=== PATIENT | male | born 1965 | race Caucasian/White ===

== ENCOUNTER 2017-01-24 08:00 | Outpatient (RCR) | payer BC ==
[~2017-01-24 08:00] MED LIST: NAPR-243 PO; QUIN324C PO
== END 2017-01-25 | disposition home or self-care (01) ==
PROVIDERS: ATTEND Orthopaedic Surgery
DX: Z47.1 Aftercare following joint replacement surgery (principal); Z96.652 Presence of left artificial knee joint

== ENCOUNTER 2017-03-07 07:59 | Outpatient (RCR) | payer BC | END 2017-04-27 | disposition home or self-care (01) | PROVIDERS: ATTEND Orthopaedic Surgery | DX: Z47.1 Aftercare following joint replacement surgery (principal); Z96.652 Presence of left artificial knee joint ==

== ENCOUNTER 2019-06-08 12:42 | Emergency (ER) | payer BC ==
[~2019-06-08] VITALS: Ht 172.2 cm; Wt 143.1 kg
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
[2019-06-08] MEDS ORDERED: fentaNYL INJECTION 100 MCG/2 ML AMP IVP ONE (13:00)
[2019-06-08 13:15] LABS: BASOPHILS % (AUTO) 0 % (0-10); EOSINOPHILS # (AUTO) 0.2 10^3/uL (0.0-0.3); EOSINOPHILS % (AUTO) 2 % (0-10); HEMATOCRIT 39 % (40-54); HEMOGLOBIN 12.7 G/DL (13.3-17.7); LYMPHOCYTES # (AUTO) 1.8 X 10^3 (1.0-4.0); LYMPHOCYTES % (AUTO) 16 % (12-44); MEAN CORPUSCULAR HEMOGLOBIN 30 PG (25-34); MEAN CORPUSCULAR HGB CONC 33 G/DL (32-36); MEAN CORPUSCULAR VOLUME 92 FL (80-99); MEAN PLATELET VOLUME 10.2 FL (7.4-10.4); MONOCYTES # (AUTO) 0.8 X 10^3 (0.0-1.0); MONOCYTES % (AUTO) 7 % (0-12); NEUTROPHILS # (AUTO) 8.3 X 10^3 (1.8-7.8); NEUTROPHILS % (AUTO) 75 % (42-75); PLATELET COUNT 272 10^3/uL (130-400); RED CELL DISTRIBUTION WIDTH 13.6 % (10.0-14.5); WHITE BLOOD COUNT 11.1 10^3/uL (4.3-11.0)
[2019-06-08 13:30] LABS: BUN/CREATININE RATIO 13; CALCIUM 9.2 MG/DL (8.5-10.1); CARBON DIOXIDE 26 MMOL/L (21-32); CHLORIDE 104 MMOL/L (98-107); GFR ESTIMATED > 60; GLUCOSE 199 MG/DL (70-105); POTASSIUM 4.4 MMOL/L (3.6-5.0); SODIUM 137 MMOL/L (135-145)
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
[2019-06-08] MEDS ORDERED: HYDROmorphone 2 MG/ML VIAL (DILAUDID) IV ONE (13:45)
[2019-06-08] MEDS ORDERED: KETAMINE/NaCl 50 MG/5 ML SYRINGE (ED ONLY) ONE (14:00)
[2019-06-08] MEDS ORDERED: KETOROLAC 30 MG/ML VIAL ONE (14:05)
[2019-06-08] MEDS ORDERED: KETAMINE/NaCl 50 MG/5 ML SYRINGE (ED ONLY) IV ONE (14:15)
--- NOTE | 2019-06-08 14:17 | NUR ---
Per Malcolm, administer 5mg ketamine for pain control at this time.
[2019-06-08] MEDS ORDERED: OXYC1TAB12 PO (14:34)
[2019-06-08 14:40] VITALS: BP 161/91
== END 2019-06-08 14:40 | disposition home or self-care (01) ==
LOC: EDUNIT# 12:42 → ER 12:42
DX: S82.234A Nondisplaced oblique fracture of shaft of right tibia, initial encounter for closed fracture (principal); R40.2142 Coma scale, eyes open, spontaneous, at arrival to emergency department; R40.2252 Coma scale, best verbal response, oriented, at arrival to emergency department; R40.2362 Coma scale, best motor response, obeys commands, at arrival to emergency department; W23.1XXA Caught, crushed, jammed, or pinched between stationary objects, initial encounter; Y92.219 Unspecified school as the place of occurrence of the external cause
CPT/HCPCS: 29505; 36415; 73590; 80048; 85025; 96374; 96375

== ENCOUNTER 2019-12-28 16:46 | Inpatient (IN) | payer BC ==
[~2019-12-28] VITALS: Ht 172.7 cm; Wt 137.4 kg
[2019-12-28] VITALS (7 sets, daily range): BP systolic 122–154; BP diastolic 69–92
[~2019-12-28 16:46] MED LIST changes: +OXYC1TAB12 PO
[2019-12-28] MEDS ORDERED: NS IV 1000 ML 1,000 ML IV SCH (17:13)
[2019-12-28] MEDS ORDERED: ACETAMINOPHEN 500 MG TAB (TYLENOL) PO ONE (17:15)
[2019-12-28 17:28] LABS: BASOPHILS % (AUTO) 0 % (0-10); EOSINOPHILS % (AUTO) 0 % (0-10); HEMATOCRIT 43 % (40-54); HEMOGLOBIN 14.3 G/DL (13.3-17.7); LYMPHOCYTES # (AUTO) 0.6 X 10^3 (1.0-4.0); LYMPHOCYTES % (AUTO) 9 % (12-44); MEAN CORPUSCULAR HEMOGLOBIN 30 PG (25-34); MEAN CORPUSCULAR HGB CONC 33 G/DL (32-36); MEAN CORPUSCULAR VOLUME 90 FL (80-99); MEAN PLATELET VOLUME 9.6 FL (7.4-10.4); MONOCYTES # (AUTO) 0.3 X 10^3 (0.0-1.0); MONOCYTES % (AUTO) 5 % (0-12); NEUTROPHILS % (AUTO) 87 % (42-75); PLATELET COUNT 247 10^3/uL (130-400)
[2019-12-28 17:39] LABS: ALBUMIN 3.8 GM/DL (3.2-4.5); CHLORIDE 97 MMOL/L (98-107); INR 0.9 (0.8-1.4); POTASSIUM 4.2 MMOL/L (3.6-5.0); PROTHROMBIN TIME PATIENT 12.4 SEC (12.2-14.7); SODIUM 134 MMOL/L (135-145)
[2019-12-28 17:41] LABS: GLUCOSE 125 MG/DL (70-105)
[2019-12-28 17:42] LABS: FIBRIN DEGRADATION PRODUCTS 2.24 UG/ML (0.00-0.49); TOTAL PROTEIN 7.3 GM/DL (6.4-8.2)
[2019-12-28 17:43] LABS: BILIRUBIN,TOTAL 0.4 MG/DL (0.1-1.0); CARBON DIOXIDE 25 MMOL/L (21-32)
[2019-12-28 17:45] LABS: ALKALINE PHOSPHATASE 51 U/L (40-136); CREATININE SERUM 1.11 MG/DL (0.60-1.30); GFR ESTIMATED > 60
[2019-12-28] MEDS ORDERED: fentaNYL INJECTION 100 MCG/2 ML AMP IVP ONE (17:45)
[2019-12-28 17:46] LABS: BUN/CREATININE RATIO 8
[2019-12-28 17:48] LABS: ALANINE AMINOTRANSFERASE 24 U/L (0-55)
--- NOTE | 2019-12-28 18:02 | Diagnostic Imaging Report ---
INDICATION: Chest pain. FINDINGS: Heart size is mildly enlarged. There is some prominence of the vascularity. There is also a right perihilar infiltrate which may be asymmetric edema versus pneumonia. No effusion and no pneumothorax. IMPRESSION: 1. Mild cardiomegaly and vascular congestion. Right perihilar pulmonary opacity, edema versus pneumonia. 2. No pleural fluid or pneumothorax. Dictated by: Dictated on workstation # [id number]
--- NOTE | 2019-12-28 18:42 | ED Respiratory ---
General Chief Complaint: Respiratory Problems Stated Complaint: RESPIRATORY FAILURE;COVID 19 Nursing Triage Note: pt amb to rm 10 with complaint of soa, cp that started friday. states tested positive for covid on friday. pt was swabbed yesterday, results not back. pt was 81% on ra upon arrival. Source: patient Exam Limitations: no limitations History of Present Illness Date Seen by Provider: Dec 28, 2019 Time Seen by Provider: 17:00 Initial Comments this 54-year-old gentleman presents to the emergency room very short of breath and hypoxic with an oxygen saturation of 81 percent on room air. He is also febrile. His tested positive for COVID-19 on Friday, December 23. He became ill that same day. He was tested yesterday and does not have his results back. He contacted his primary care provider with worsening symptoms today and was referred to the emergency room. He denies any history of respiratory problems. He has chest pain as well especially when coughing. Allergies and Home Medications Allergies Coded Allergies: No Known Drug Allergies (Unverified , 06/08/19) Home Medications Naproxen 500 Mg Tablet, 500 MG PO BID PRN, (Reported) NEEDED FOR ARTHRITIS PAIN Oxycodone HCl/Acetaminophen 1 Each Tablet, 0.5-2 TAB PO Q6H PRN for PAIN- MODERATE Prescribed by: DAYANA GALINDO on 06/08/19 1434 Quinine Sulfate 324 Mg Capsule, 324 MG PO HS, (Reported) Patient Home Medication List Home Medication List Reviewed: Yes Review of Systems Review of Systems Constitutional: see HPI EENTM: no symptoms reported Respiratory: see HPI Cardiovascular: see HPI Gastrointestinal: no symptoms reported Genitourinary: no symptoms reported Musculoskeletal: see HPI Skin: no symptoms reported Psychiatric/Neurological: No Symptoms Reported Hematologic/Lymphatic: No Symptoms Reported Immunological/Allergic: no symptoms reported Past Fmtcqfr-Ozlaio-Vkarpu Hx Past Med/Social Hx: Reviewed Nursing Past Med/Soc Hx Patient Social History Type Used: Smokeless Tobacco 2nd Hand Smoke Exposure: No Recent Foreign Travel: No Contact w/Someone Who Travel: No Recent Infectious Disease Expo: Yes Recent Hopitalizations: No Past Medical History Surgeries: Yes Gallbladder, Orthopedic Respiratory: No Cardiac: Yes Hypertension Neurological: No Reproductive Disorders: No Genitourinary: No Gastrointestinal: No Musculoskeletal: No Endocrine: Yes Diabetes, Non-Insulin dep HEENT: Yes (cochlear implant) Loss of Vision: Denies Cancer: No Psychosocial: No Integumentary: No Physical Exam Vital Signs - First Documented 12/28/19 12/28/19 17:02 17:36 Temp 39.7 Pulse 107 Resp 32 B/P (MAP) 103/49 (67) Pulse Ox 81 O2 Delivery Room Air O2 Flow Rate 6.00 Capillary Refill : Less Than 3 Seconds Height: '" Weight: 310lbs. 0.0oz. 140.712418ab; 48.00 BMI Method: General Appearance: WD/WN, moderate distress, obese HEENT: PERRL/EOMI, normal ENT inspection Neck: normal inspection Respiratory: lungs clear, respiratory distress, other (shallow rapid breathing with no wheezes or crackles) Cardiovascular: no edema, no murmur, tachycardia Gastrointestinal: normal bowel sounds, non tender, soft Extremities: normal inspection, no pedal edema Neurologic/Psychiatric: junior legal secretary II-XII nml as tested, no motor/sensory deficits, alert, normal mood/affect, oriented x 3 Skin: normal color, warm/dry Focused Exam Lactate Level 12/28/19 17:17: Lactic Acid Level 2.09*H Lactic Acid Level Laboratory Tests Test 12/28/19 17:17 Lactic Acid Level 2.09 MMOL/L (0.50-2.00) *H Progress/Results/Core Measures Suspected Sepsis Recent Fever Within 48 Hours: Yes Infection Criteria Present: None New/Unexplained Altered Menta: No Sepsis Screen: No Definite Risk SIRS Temperature: Pulse: 107 Respiratory Rate: 32 Laboratory Tests 12/28/19 17:17: White Blood Count 7.0 Blood Pressure 103 /49 Mean: 67 12/28/19 17:17: Lactic Acid Level 2.09*H Laboratory Tests 12/28/19 17:17: Creatinine 1.11, INR Comment 0.9, Platelet Count 247, Total Bilirubin 0.4 Results/Orders Lab Results Laboratory Tests Test 12/28/19 17:17 Range/Units White Blood Count 7.0 4.3-11.0 10^3/uL Red Blood Count 4.79 4.35-5.85 10^6/uL Hemoglobin 14.3 13.3-17.7 G/DL Hematocrit 43 40-54 % Mean Corpuscular Volume 90 80-99 FL Mean Corpuscular Hemoglobin 30 25-34 PG Mean Corpuscular Hemoglobin Concent 33 32-36 G/DL Red Cell Distribution Width 14.3 10.0-14.5 % Platelet Count 247 130-400 10^3/uL Mean Platelet Volume 9.6 7.4-10.4 FL Neutrophils (%) (Auto) 87 H 42-75 % Lymphocytes (%) (Auto) 9 L 12-44 % Monocytes (%) (Auto) 5 0-12 % Eosinophils (%) (Auto) 0 0-10 % Basophils (%) (Auto) 0 0-10 % Neutrophils # (Auto) 6.0 1.8-7.8 X 10^3 Lymphocytes # (Auto) 0.6 L 1.0-4.0 X 10^3 Monocytes # (Auto) 0.3 0.0-1.0 X 10^3 Eosinophils # (Auto) 0.0 0.0-0.3 10^3/uL Basophils # (Auto) 0.0 0.0-0.1 10^3/uL Prothrombin Time 12.4 12.2-14.7 SEC INR Comment 0.9 0.8-1.4 Activated Partial Thromboplast Time 33 24-35 SEC D-Dimer 2.24 H 0.00-0.49 UG/ML Sodium Level 134 L 135-145 MMOL/L Potassium Level 4.2 3.6-5.0 MMOL/L Chloride Level 97 L 98-107 MMOL/L Carbon Dioxide Level 25 21-32 MMOL/L Anion Gap 12 5-14 MMOL/L Blood Urea Nitrogen 9 7-18 MG/DL Creatinine 1.11 0.60-1.30 MG/DL Estimat Glomerular Filtration Rate > 60 BUN/Creatinine Ratio 8 Glucose Level 125 H 70-105 MG/DL Lactic Acid Level 2.09 *H 0.50-2.00 MMOL/L Calcium Level 9.0 8.5-10.1 MG/DL Corrected Calcium 9.2 8.5-10.1 MG/DL Total Bilirubin 0.4 0.1-1.0 MG/DL Aspartate Amino Transf (AST/SGOT) 35 H 5-34 U/L Alanine Aminotransferase (ALT/SGPT) 24 0-55 U/L Alkaline Phosphatase 51 40-136 U/L Lactate Dehydrogenase 458 H 125-220 U/L Troponin I < 0.028 <0.028 NG/ML C-Reactive Protein High Sensitivity 15.29 H 0.00-0.50 MG/DL Total Protein 7.3 6.4-8.2 GM/DL Albumin 3.8 3.2-4.5 GM/DL Procalcitonin 0.11 H <0.10 NG/ML Coronavirus 2019 (MARIA DOLORES) Positive H Negative My Orders Orders - ALPA SIEGEL MD Ed Iv/Invasive Line Start (12/28/19 17:13) Ns Iv 1000 Ml (Sodium Chloride 0.9%) (12/28/19 17:13) Acetaminophen Tablet (Tylenol Tablet) (12/28/19 17:15) Cbc With Automated Diff (12/28/19 17:13) Comprehensive Metabolic Panel (12/28/19 17:13) Hs C Reactive Protein (12/28/19 17:13) Fibrin Degradation Products (12/28/19 17:13) Blood Culture (12/28/19 17:13) Sputum Culture (12/28/19 17:13) Urinalysis (12/28/19 17:13) Urine Culture (12/28/19 17:13) Protime With Inr (12/28/19 17:13) Partial Thromboplastin Time (12/28/19 17:13) Chest 1 View, Ap/Pa Only (12/28/19 17:13) Ed Iv/Invasive Line Start (12/28/19 17:13) Vital Signs Adult Sepsis Patie Q15M (12/28/19 17:13) O2 (12/28/19 17:13) Remove Rings In Anticipation O (12/28/19 17:13) Lactic Acid Analyzer (12/28/19 17:13) Procalcitonin (Pct) (12/28/19 17:13) LDH (12/28/19 17:13) Covid 19 Inhouse Test (12/28/19 17:13) Dexamethasone Injection (Decadron Inje (12/28/19 17:45) Fentanyl Injection (Sublimaze Injection (12/28/19 17:45) Troponin I (12/28/19 17:35) Ekg Tracing (12/28/19 17:35) Medications Given in ED Current Medications Medications Dose Ordered Sig/Yasmeen Route Start Time Stop Time Status Last Admin Dose Admin Acetaminophen 1,000 mg ONCE ONCE PO 12/28/19 17:15 12/28/19 17:17 DC 12/28/19 17:28 1,000 MG Dexamethasone Sodium Phosphate 20 mg ONCE ONCE IV 12/28/19 17:45 12/28/19 17:46 DC 12/28/19 17:47 20 MG Fentanyl Citrate 50 mcg ONCE ONCE IVP 12/28/19 17:45 12/28/19 17:46 DC 12/28/19 17:48 50 MCG Vital Signs/I&O 12/28/19 12/28/19 17:02 17:36 Temp 39.7 Pulse 107 Resp 32 B/P (MAP) 103/49 (67) Pulse Ox 81 91 O2 Delivery Room Air Nasal Cannula O2 Flow Rate 6.00 Capillary Refill : Less Than 3 Seconds Blood Pressure Mean: 67 Progress Note : Progress Note rapid COVID screen was positive. Blood pressure was marginal and a liter of IV fluid was administered. Patient remained stable on 3-6 L of nasal cannula. Case was discussed with Dr. Funez and Dr. Echevarria. Swathi requested initiation of Remdesivir and Dexamethasone as well as a one-time dose of therapeutic Lovenox. Fentanyl was given for pain. Tylenol was given for fever. Troponin and EKG were obtained to rule out ACS. ECG Initial ECG Impression Date: Dec 28, 2019 Initial ECG Impression Time: 17:38 Initial ECG Rate: 105 Initial ECG Rhythm: S.Tach Comment Sinus tachycardia with borderline left axis deviation. No ST elevation or depression. No abnormal intervals. Diagnostic Imaging Diagonstic Imaging: Xray Plain Films/CT/US/NM/MRI: chest Comments Chest x-ray viewed by me and report reviewed. See report below: NAME: MARIA ISABEL [facility] REC#: [id number] PT STATUS: ADM IN : 1965 PHYSICIAN: ALPA SIEGEL MD ADMIT DATE: 12/28/19/ICU Signed Date of Exam:12/28/19 CHEST 1 VIEW, AP/PA ONLY INDICATION: Chest pain. FINDINGS: Heart size is mildly enlarged. There is some prominence of the vascularity. There is also a right perihilar infiltrate which may be asymmetric edema versus pneumonia. No effusion and no pneumothorax. IMPRESSION: 1. Mild cardiomegaly and vascular congestion. Right perihilar pulmonary opacity, edema versus pneumonia. 2. No pleural fluid or pneumothorax. Dictated by: Dictated on workstation # [id number] Dict: 12/28/19 1758 Trans: 12/28/191802 [id number] Interpreted by: KELLIE PERALTA Electronically signed by: KELLIE PERALTA 12/28/19 1803 Departure Communication (Admissions) Time/Spoke to Admitting Phy: 17:30 Dr. Funez Time/Spoke to Consulting Phy: 17:42 Dr. Echevarria Impression Primary Impression: COVID-19 Additional Impressions: Respiratory failure Qualified Codes: J96.01 - Acute respiratory failure with hypoxia Chest pain Qualified Codes: R07.9 - Chest pain, unspecified Disposition: ADMITTED INPATIENT Condition: Improved Admissions Decision to Admit Reason: Admit from ER (General) Decision to Admit/Date: Dec 28, 2019 Time/Decision to Admit Time: 17:00 Departure-Patient Inst. Referrals: NO,LOCAL PHYSICIAN (PCP) Primary Care Physician EV STAFFORD (Family) Primary Care Physician ALPA SIEGEL MD Dec 28, 2019 18:42
[2019-12-28] MEDS ORDERED: ENOXAPARIN 80 MG/0.8 ML (LOVENOX) SYR SC ONE ×2 (18:45)
[2019-12-28] MEDS ORDERED: ONDANSETRON 4 MG/2 ML (SDV) Z0FRAN IVP PRN (19:15)
[2019-12-28] MEDS ORDERED: fentaNYL INJECTION 100 MCG/2 ML AMP IVP PRN (20:00)
[2019-12-28] MEDS ORDERED: REMDESIVIR 200 MG/NS 250 ML IVPB IV ONE ×2 (20:00)
[2019-12-28] MEDS ORDERED: ACETAMINOPHEN 325 MG TABLET PO PRN (20:15)
[2019-12-28] MEDS: LACTATED RINGERS 1,000 ML IV SCH (21:04)
[2019-12-28] MEDS: CEFEPIME 1,000 MG/SWFI 10 ML IV PUSH IV SCH ×2 (21:04)
[2019-12-29] VITALS (21 sets, daily range): BP systolic 108–153; BP diastolic 66–98
[2019-12-29] MEDS ORDERED: methylPREDNISolone 40 MG/ML (Solu-MEDROL) VIAL IV SCH
[2019-12-29] MEDS: CEFEPIME 1,000 MG/SWFI 10 ML IV PUSH IV SCH ×8 (02:27→20:40)
[2019-12-29] MEDS: LACTATED RINGERS 1,000 ML IV SCH ×4 (04:00→20:41)
[2019-12-29 04:56] LABS: BASOPHILS % (AUTO) 0 % (0-10); EOSINOPHILS % (AUTO) 0 % (0-10); HEMATOCRIT 42 % (40-54); HEMOGLOBIN 13.8 G/DL (13.3-17.7); LYMPHOCYTES # (AUTO) 0.3 X 10^3 (1.0-4.0); LYMPHOCYTES % (AUTO) 7 % (12-44); MEAN CORPUSCULAR HEMOGLOBIN 30 PG (25-34); MEAN CORPUSCULAR HGB CONC 33 G/DL (32-36); MEAN CORPUSCULAR VOLUME 90 FL (80-99); MEAN PLATELET VOLUME 9.9 FL (7.4-10.4); MONOCYTES # (AUTO) 0.1 X 10^3 (0.0-1.0); MONOCYTES % (AUTO) 2 % (0-12); NEUTROPHILS % (AUTO) 90 % (42-75); PLATELET COUNT 233 10^3/uL (130-400); WHITE BLOOD COUNT 4.4 10^3/uL (4.3-11.0)
[2019-12-29 05:10] LABS: CHLORIDE 99 MMOL/L (98-107); POTASSIUM 4.7 MMOL/L (3.6-5.0); SODIUM 136 MMOL/L (135-145)
[2019-12-29 05:11] LABS: CALCIUM 8.8 MG/DL (8.5-10.1)
[2019-12-29 05:12] LABS: GLUCOSE 255 MG/DL (70-105)
[2019-12-29 05:13] LABS: CARBON DIOXIDE 24 MMOL/L (21-32)
--- NOTE | 2019-12-29 05:15 | Pulmonary Consultation ---
History of Present Illness History of Present Illness Date Seen by Provider: Dec 29, 2019 Time Seen by Provider: 05:09 Date of Admission History of Present Illness 54yo presented to ED secondary to fever, worsening SOB, cough, and CP. He was found to be hypoxia with Sp02 was 81% on RA. His tested positive for COVID- 19 on Friday, December 23. Pt was admitted to ICU, Allergies and Home Medications Allergies Coded Allergies: No Known Drug Allergies (Unverified , 06/08/19) Home Medications Naproxen 500 Mg Tablet, 500 MG PO BID PRN, (Reported) NEEDED FOR ARTHRITIS PAIN Oxycodone HCl/Acetaminophen 1 Each Tablet, 0.5-2 TAB PO Q6H PRN for PAIN- MODERATE Prescribed by: DAYANA GALINDO on 06/08/19 1434 Quinine Sulfate 324 Mg Capsule, 324 MG PO HS, (Reported) Past Bsbltrw-Basuqy-Epohdu Hx Past Med/Social Hx: Reviewed Nursing Past Med/Soc Hx Patient Social History Alcohol Use: Denies Use Recreational Drug Use: No Type Used: Smokeless Tobacco 2nd Hand Smoke Exposure: No Recent Foreign Travel: No Contact w/Someone Who Travel: No Recent Infectious Disease Expo: Yes Recent Hopitalizations: No Immunizations Up To Date Tetanus Booster (TDap): Unknown PED Vaccines UTD: Yes Past Medical History Surgeries: Yes Gallbladder, Orthopedic Respiratory: No Cardiac: Yes Hypertension Neurological: No Reproductive Disorders: No Genitourinary: No Gastrointestinal: No Musculoskeletal: No Endocrine: Yes Diabetes, Non-Insulin dep HEENT: Yes (cochlear implant) Loss of Vision: Denies Cancer: No Psychosocial: No Integumentary: No Review of Systems Time Seen by Provider: 05:13 Constitutional: Fever, Chills, Sweats, Weakness, Malaise, Other Eyes: No: Pain, Vision change, Conjunctivae inflammation, Eyelid inflammation, Other, Redness ENT: Nose congestion; No: Ear pain, Ear discharge, Nose pain, Nose discharge, Mouth pain, Mouth swelling, Throat pain, Throat swelling, Other Respiratory: Cough, Dry, Shortness of breath, SOB with excertion Cardiovascular: Chest Pain, Palpitations, Paroxysmal Noc. Dyspnea Sepsis Event Evaluation Height, Weight, BMI Height: '" Weight: 310lbs. 0.0oz. 140.928819pe; 48.00 BMI Method: Exam Exam Vital Signs Date Time Temp Pulse Resp B/P (MAP) Pulse Ox O2 Delivery O2 Flow Rate FiO2 12/29/19 04:00 62 21 138/82 (100) 95 Nasal Cannula 4.00 12/29/19 03:00 69 17 133/89 (104) 89 Nasal Cannula 4.00 12/29/19 02:30 63 17 150/90 (110) 91 Nasal Cannula 4.00 12/29/19 02:00 71 29 142/98 (113) 87 Nasal Cannula 3.00 12/29/19 01:00 64 12/29/19 01:00 64 21 125/81 (96) 92 Nasal Cannula 3.00 12/29/19 00:00 67 26 132/87 (102) 89 Nasal Cannula 3.00 12/29/19 00:00 Nasal Cannula 4.00 12/28/19 23:00 70 12 141/87 (105) 92 Nasal Cannula 3.00 12/28/19 22:00 105 30 132/72 (92) 93 Nasal Cannula 3.00 12/28/19 21:00 76 32 132/86 (101) 96 Nasal Cannula 3.00 12/28/19 20:00 Nasal Cannula 4.00 12/28/19 20:00 80 19 122/72 (89) 96 Nasal Cannula 3.00 12/28/19 19:30 84 20 143/92 (109) 96 Nasal Cannula 3.00 12/28/19 19:15 89 20 154/89 (110) 97 Nasal Cannula 3.00 12/28/19 19:00 92 20 125/69 (87) 95 Nasal Cannula 3.00 12/28/19 18:54 93 12/28/19 18:49 93 13 123/73 97 Nasal Cannula 3.00 12/28/19 17:36 91 Nasal Cannula 6.00 12/28/19 17:02 39.7 107 32 103/49 (67) 81 Room Air I & O 12/29/19 07:00 Intake Total 1650 ml Output Total 840 ml Balance 810 ml Height & Weight Height: '" Weight: 310lbs. 0.0oz. 140.532405bc; 48.00 BMI Method: General Appearance: Anxious, Mild Distress HEENT: PERRL/EOMI Neck: Full Range of Motion, Non Tender, Supple Respiratory: Chest Non Tender, No Accessory Muscle Use, No Respiratory Distress, Decreased Breath Sounds Cardiovascular: Regular Rate, Rhythm Capillary Refill: Less Than 3 Seconds Gastrointestinal: normal bowel sounds, non tender, soft Extremity: Normal Capillary Refill, Normal Inspection, No Pedal Edema Neurologic/Psychiatric: Alert, Oriented x3 Skin: Normal Color, Warm/Dry Lymphatic: No Adenopathy Results Lab Laboratory Tests 12/28/19 17:17 12/29/19 04:35 Assessment/Plan Assessment/Plan Acute respiratory failure with hypoxia COVID-19 pneumonia -Remdesivier - pt is aware this is an EUA medicine and consents to use. -Oxygen -Convalescent plasma --pt is aware this is an EUA medicine and consents to use. -Decadron 6mg PO daily -Encourage proning CP secondary to pneumonia -troponin is negative BLAS JONES DO Dec 29, 2019 05:15
[2019-12-29 05:16] LABS: CREATININE SERUM 0.93 MG/DL (0.60-1.30); GFR ESTIMATED > 60; PHOSPHORUS 2.7 MG/DL (2.3-4.7)
[2019-12-29 05:17] LABS: BUN/CREATININE RATIO 12
[2019-12-29 05:18] LABS: MAGNESIUM 2.3 MG/DL (1.6-2.4)
[2019-12-29 05:45] LABS: ATYPICAL LYMPHOCYTES 2 %; BAND NEUTROPHILS 3 %; LYMPHOCYTES % (MANUAL) 5 %; MICROCYTOSIS SLIGHT; MONOCYTES % (MANUAL) 1 %; NEUTROPHILS % (MANUAL) 89 %
[2019-12-29] MEDS ORDERED: inSUlin ASPART (NovoLOG) 1 UNIT/0.01 ML (CHARGE PER UNIT) SC SCH (09:15)
[2019-12-29] MEDS: ENOXAPARIN 40 MG/0.4 ML (LOVENOX) SYR SC SCH ×2 (09:42→20:41)
[2019-12-29] MEDS ORDERED: ATOR10TA66 PO (12:05)
[2019-12-29] MEDS ORDERED: METF-397 PO (12:05)
[2019-12-29] MEDS ORDERED: CETI10TA21 PO (12:05)
[2019-12-29] MEDS ORDERED: OMEP20CA18 PO (12:05)
[2019-12-29] MEDS ORDERED: ENAL10TA PO (12:05)
--- NOTE | 2019-12-29 12:06 | NUR ---
SPOKE WITH THE PT (I CALLED HIS ROOM PHONE) AND WENT THRU THE EXT MED HISTORY TO COMPLETE THE MED REC ENALAPRIL 10MG- DIRECTIONS ON THE EXT MED HISTORY IS 1 & TABS DAILY HOWEVER THE PT IS ONLY TAKING 1 TAB DAILY ALL OTHER MEDICATIONS THE PT TAKES MATCH THE EXT MED HISTORY OTC MEDS: ZYRTEC
[2019-12-29] MEDS: inSUlin ASPART (NovoLOG) 1 UNIT/0.01 ML (CHARGE PER UNIT) SC SCH ×3 (12:53→20:46)
[2019-12-29] MEDS ORDERED: NS (IVPB) 250 ML ONE (13:31)
--- NOTE | 2019-12-29 17:16 | NUR ---
RECEIVED REPORT FROM MENDOZA DOMINGUEZ. THIS RN TO ASSUME CARE OF THE PT.
[2019-12-29] MEDS ORDERED: inSUlin ASPART/PROTA (NovoLOG 70/30) CHARGE PER UNIT SC SCH (21:00)
[2019-12-29] MEDS: MELATONIN 3 MG TABLET PO SCH (21:30)
[2019-12-29] MEDS: REMDESIVIR 100 MG/NS 250 ML IVPB IV SCH ×2 (23:10)
[2019-12-30] MEDS: LACTATED RINGERS 1,000 ML IV SCH (00:49)
[2019-12-30] MEDS: CEFEPIME 1,000 MG/SWFI 10 ML IV PUSH IV SCH ×2 (00:55)
[2019-12-30 03:20] LABS: BASOPHILS % (AUTO) 0 % (0-10); EOSINOPHILS % (AUTO) 0 % (0-10); HEMATOCRIT 37 % (40-54); HEMOGLOBIN 12.5 G/DL (13.3-17.7); LYMPHOCYTES # (AUTO) 0.6 X 10^3 (1.0-4.0); LYMPHOCYTES % (AUTO) 5 % (12-44); MEAN CORPUSCULAR HEMOGLOBIN 30 PG (25-34); MEAN CORPUSCULAR HGB CONC 33 G/DL (32-36); MEAN CORPUSCULAR VOLUME 90 FL (80-99); MEAN PLATELET VOLUME 10.2 FL (7.4-10.4); MONOCYTES # (AUTO) 0.6 X 10^3 (0.0-1.0); MONOCYTES % (AUTO) 4 % (0-12); NEUTROPHILS # (AUTO) 11.6 X 10^3 (1.8-7.8); NEUTROPHILS % (AUTO) 91 % (42-75); PLATELET COUNT 254 10^3/uL (130-400); WHITE BLOOD COUNT 12.8 10^3/uL (4.3-11.0)
[2019-12-30 03:35] LABS: BUN/CREATININE RATIO 16; CALCIUM 8.8 MG/DL (8.5-10.1); CARBON DIOXIDE 27 MMOL/L (21-32); CHLORIDE 101 MMOL/L (98-107); CREATININE SERUM 0.79 MG/DL (0.60-1.30); GFR ESTIMATED > 60; GLUCOSE 221 MG/DL (70-105); POTASSIUM 4.7 MMOL/L (3.6-5.0); SODIUM 137 MMOL/L (135-145)
--- NOTE | 2019-12-30 04:35 | Pulmonary Progress Note ---
Subjective Time Seen by a Provider: 04:33 Subjective/Events-last exam Pt appears to be doing better however still requiring oxygen. Sepsis Event Evaluation Height, Weight, BMI Height: '" Weight: 310lbs. 0.0oz. 140.035537pr; 48.00 BMI Method: Focused Exam Lactate Level 12/28/19 17:17: Lactic Acid Level 2.09*H 12/28/19 20:10: Lactic Acid Level 1.31 Exam Exam Vital Signs Date Time Temp Pulse Resp B/P (MAP) Pulse Ox O2 Delivery O2 Flow Rate FiO2 12/30/19 01:00 70 12/30/19 00:00 94 High Flow N/C 5.00 12/29/19 23:16 35.9 68 22 108/66 (80) 95 High Flow N/C 5.00 12/29/19 20:47 36.6 76 25 132/82 (99) High Flow N/C 6.00 12/29/19 20:00 70 28 132/82 (99) 96 Nasal Cannula 6.00 12/29/19 20:00 93 High Flow N/C 6.00 12/29/19 19:00 71 12/29/19 18:04 Nasal Cannula 6.00 12/29/19 16:00 75 12 130/84 (99) 100 Nasal Cannula 5.00 12/29/19 16:00 Nasal Cannula 5.00 12/29/19 14:25 36.9 78 18 138/91 99 Nasal Cannula 5.00 12/29/19 14:15 36.9 75 18 139/90 100 Nasal Cannula 5.00 12/29/19 14:07 36.9 80 18 138/92 97 Nasal Cannula 5.00 12/29/19 13:55 80 12/29/19 12:15 Nasal Cannula 5.00 12/29/19 12:00 87 34 120/76 (91) 95 Nasal Cannula 5.00 12/29/19 12:00 36.6 12/29/19 10:00 67 24 144/84 (104) 95 Nasal Cannula 5.00 12/29/19 09:00 71 22 153/95 (114) 94 Nasal Cannula 5.00 12/29/19 08:00 Nasal Cannula 5.00 12/29/19 08:00 65 25 134/96 (109) 94 Nasal Cannula 5.00 12/29/19 08:00 36.8 12/29/19 07:04 Nasal Cannula 2.00 12/29/19 07:00 63 23 127/76 (93) 95 Nasal Cannula 5.00 12/29/19 07:00 66 12/29/19 06:15 Nasal Cannula 5.00 12/29/19 06:15 69 8 136/88 (104) 91 Nasal Cannula 5.00 12/29/19 06:00 68 31 127/82 (97) 89 Nasal Cannula 4.00 12/29/19 05:00 66 21 133/87 (102) 90 Nasal Cannula 4.00 I & O 12/30/19 07:00 Intake Total 3600 ml Output Total 1550 ml Balance 2050 ml Height & Weight Height: '" Weight: 310lbs. 0.0oz. 140.070232wx; 48.00 BMI Method: General Appearance: Anxious, Mild Distress HEENT: PERRL/EOMI Neck: Full Range of Motion, Non Tender, Supple Respiratory: Chest Non Tender, No Accessory Muscle Use, No Respiratory Distress, Decreased Breath Sounds Cardiovascular: Regular Rate, Rhythm Capillary Refill: Less Than 3 Seconds Gastrointestinal: normal bowel sounds, non tender, soft Extremity: Normal Capillary Refill, Normal Inspection, No Pedal Edema Neurologic/Psychiatric: Alert, Oriented x3 Skin: Normal Color, Warm/Dry Lymphatic: No Adenopathy Results Lab Laboratory Tests 12/28/19 17:17 12/29/19 04:35 12/30/19 03:08 Assessment/Plan Assessment/Plan Acute respiratory failure with hypoxia COVID-19 pneumonia -Remdesivier - pt is aware this is an EUA medicine and consents to use. -Oxygen -Convalescent plasma --pt is aware this is an EUA medicine and consents to use. -Decadron 6mg PO daily -Encourage proning -D/C Abx - Doubt active bacterial infection. CP secondary to pneumonia -troponin is negative x2 BLAS JONES DO Dec 30, 2019 04:35
[2019-12-30 06:12] VITALS: BP 123/72
[2019-12-30] MEDS: inSUlin ASPART (NovoLOG) 1 UNIT/0.01 ML (CHARGE PER UNIT) SC SCH ×4 (06:16→20:08)
--- NOTE | 2019-12-30 08:20 | NUR ---
REPORT RECEIVED FROM [facility]
[2019-12-30] MEDS: dexAMETHasone 6 MG TAB (DECADRON) PO SCH (08:47)
[2019-12-30] MEDS: ENOXAPARIN 40 MG/0.4 ML (LOVENOX) SYR SC SCH ×2 (08:50→20:07)
[2019-12-30 11:50] VITALS: BP 101/60
[2019-12-30 15:30] VITALS: BP 121/72
[2019-12-30 19:54] VITALS: BP 101/65
[2019-12-30] MEDS: REMDESIVIR 100 MG/NS 250 ML IVPB IV SCH ×2 (20:06)
[2019-12-30] MEDS: MELATONIN 3 MG TABLET PO SCH (20:07)
[2019-12-31] VITALS (7 sets, daily range): BP systolic 100–115; BP diastolic 51–66
[2019-12-31] MEDS: inSUlin ASPART (NovoLOG) 1 UNIT/0.01 ML (CHARGE PER UNIT) SC SCH ×4 (06:10→20:28)
[2019-12-31 06:32] LABS: BASOPHILS % (AUTO) 0 % (0-10); EOSINOPHILS % (AUTO) 0 % (0-10); HEMATOCRIT 40 % (40-54); HEMOGLOBIN 13.1 G/DL (13.3-17.7); LYMPHOCYTES # (AUTO) 0.8 X 10^3 (1.0-4.0); LYMPHOCYTES % (AUTO) 7 % (12-44); MEAN CORPUSCULAR HEMOGLOBIN 29 PG (25-34); MEAN CORPUSCULAR HGB CONC 33 G/DL (32-36); MEAN CORPUSCULAR VOLUME 90 FL (80-99); MEAN PLATELET VOLUME 10.1 FL (7.4-10.4); MONOCYTES # (AUTO) 0.7 X 10^3 (0.0-1.0); MONOCYTES % (AUTO) 6 % (0-12); NEUTROPHILS # (AUTO) 9.6 X 10^3 (1.8-7.8); NEUTROPHILS % (AUTO) 87 % (42-75); PLATELET COUNT 305 10^3/uL (130-400); WHITE BLOOD COUNT 11.1 10^3/uL (4.3-11.0)
[2019-12-31 06:41] LABS: CHLORIDE 98 MMOL/L (98-107); POTASSIUM 4.4 MMOL/L (3.6-5.0); SODIUM 136 MMOL/L (135-145)
[2019-12-31 06:43] LABS: CALCIUM 8.8 MG/DL (8.5-10.1); GLUCOSE 200 MG/DL (70-105)
[2019-12-31 06:45] LABS: CARBON DIOXIDE 27 MMOL/L (21-32)
[2019-12-31 06:47] LABS: CREATININE SERUM 0.82 MG/DL (0.60-1.30); GFR ESTIMATED > 60
[2019-12-31 06:48] LABS: BUN/CREATININE RATIO 21
[2019-12-31] MEDS: ENOXAPARIN 40 MG/0.4 ML (LOVENOX) SYR SC SCH ×2 (08:12→20:27)
[2019-12-31] MEDS: dexAMETHasone 6 MG TAB (DECADRON) PO SCH (08:12)
[2019-12-31] MEDS ORDERED: ACETAMINOPHEN 325 MG TABLET PO PRN (08:45)
[2019-12-31] MEDS ORDERED: polyethylene glycoL POWDER 17 GM (MIRALAX) PACK PO PRN (08:45)
[2019-12-31] MEDS ORDERED: ONDANSETRON 4 MG (ZOFRAN) ORAL DISSOLVE TAB PO PRN (08:45)
[2019-12-31] MEDS ORDERED: ANTACID SUSP 30 ML UDC (MYLANTA) PO PRN (08:45)
[2019-12-31] MEDS ORDERED: diphenhydrAMINE 25 MG TAB (BENADRYL) PO PRN (08:45)
[2019-12-31] MEDS ORDERED: ONDANSETRON 4 MG/2 ML (SDV) Z0FRAN IV PRN (08:45)
[2019-12-31] MEDS ORDERED: BISACODYL 10 MG SUPP (DULCOLAX) PR PRN (08:45)
[2019-12-31] MEDS: PANTOPRAZOLE 20 MG TABLET (PROTONIX) PO SCH (09:28)
[2019-12-31] MEDS: LORATADINE (CLARITIN) 10 MG TAB PO SCH (09:28)
[2019-12-31] MEDS: metFORMIN 500 MG (GLUCOPHAGE) TAB PO SCH ×2 (09:29→20:30)
[2019-12-31] MEDS: SENNOSIDES 8.6 MG (SENOKOT) TAB PO SCH ×2 (09:39→20:28)
[2019-12-31] MEDS: ENALAPRIL 10 MG (VASOTEC) TAB PO SCH (09:39)
[2019-12-31] MEDS: DOCUSATE SODIUM 100 MG (COLACE) CAP PO SCH ×2 (09:40→20:28)
--- NOTE | 2019-12-31 15:53 | Progress Note - Hospitalist ---
Subjective HPI/CC On Admission Date Seen by Provider: Dec 31, 2019 Time Seen by Provider: 10:25 Subjective/Events-last exam He reports no complaints or concerns. He denies fevers and chills. He denies trouble breathing. He has a bit of a cough. He is in his bedside chair. He says he wants to take a nap. He feels like he is getting better. Focused Exam Lactate Level 12/28/19 17:17: Lactic Acid Level 2.09*H 12/28/19 20:10: Lactic Acid Level 1.31 Objective Exam Vital Signs Vital Signs Date Time Temp Pulse Resp B/P (MAP) Pulse Ox O2 Delivery O2 Flow Rate FiO2 12/31/19 12:33 54 12/31/19 12:00 36.4 20 100/51 (67) 96 Nasal Cannula 3.00 Capillary Refill : Less Than 3 SecondsLess Than 3 Seconds General Appearance: No Apparent Distress, WD/WN HEENT: PERRL/EOMI, Pharynx Normal Neck: Normal Inspection, Supple Respiratory: Lungs Clear, Normal Breath Sounds, No Respiratory Distress Cardiovascular: Regular Rate, Rhythm, No Edema, No Murmur Gastrointestinal: Normal Bowel Sounds, Non Tender, Soft Extremity: Normal Inspection, Non Tender, No Pedal Edema Neurologic/Psychiatric: Alert, Oriented x3, No Motor/Sensory Deficits, Normal Mood/Affect Skin: Normal Color, Warm/Dry Results/Procedures Lab Laboratory Tests 12/31/19 06:30 Patient resulted labs reviewed. Imaging: Reviewed Imaging Report Assessment/Plan Assessment and Plan Assess & Plan/Chief Complaint COVID-19 Acute respiratory failure with hypoxia -Continue Remdesivir -Continue Decadron -s/p convalescent plasma -Continue supplemental oxygen, wean as able T2DM Steroid induced hyperglycemia -Resume Metformin -Sliding scale insulin HTN HLD GERD -Continue home meds Morbid obesity -Clinically significant, no acute management needs DVT Prophylaxis: Lovenox Diagnosis/Problems Diagnosis/Problems (1) COVID-19 Status: Acute (2) Respiratory failure Status: Acute Qualifiers: Chronicity: acute Respiratory failure complication: hypoxia Qualified Codes: J96.01 - Acute respiratory failure with hypoxia (3) T2DM (type 2 diabetes mellitus) Status: Chronic (4) Steroid-induced hyperglycemia Status: Acute (5) HTN (hypertension) Status: Chronic (6) HLD (hyperlipidemia) Status: Chronic (7) GERD (gastroesophageal reflux disease) Status: Chronic (8) Morbid obesity Status: Chronic Clinical Quality Measures DVT/VTE Risk/Contraindication: Risk Factor Score Per Nursin RFS Level Per Nursing on Admit: 3=High YOSELYN MAYNARD MD Dec 31, 2019 15:53
[2019-12-31] MEDS: REMDESIVIR 100 MG/NS 250 ML IVPB IV SCH ×2 (20:23)
[2019-12-31] MEDS: MELATONIN 3 MG TABLET PO SCH (20:28)
[2020-01-01 04:00] VITALS: BP 116/68
[2020-01-01] MEDS: inSUlin ASPART (NovoLOG) 1 UNIT/0.01 ML (CHARGE PER UNIT) SC SCH ×4 (05:35→20:47)
[2020-01-01 07:10] LABS: BASOPHILS % (AUTO) 0 % (0-10); EOSINOPHILS % (AUTO) 0 % (0-10); HEMATOCRIT 38 % (40-54); HEMOGLOBIN 12.5 G/DL (13.3-17.7); LYMPHOCYTES % (AUTO) 10 % (12-44); MEAN CORPUSCULAR HEMOGLOBIN 30 PG (25-34); MEAN CORPUSCULAR HGB CONC 33 G/DL (32-36); MEAN CORPUSCULAR VOLUME 90 FL (80-99); MEAN PLATELET VOLUME 10.3 FL (7.4-10.4); MONOCYTES # (AUTO) 0.7 X 10^3 (0.0-1.0); MONOCYTES % (AUTO) 7 % (0-12); NEUTROPHILS # (AUTO) 8.2 X 10^3 (1.8-7.8); NEUTROPHILS % (AUTO) 83 % (42-75); PLATELET COUNT 286 10^3/uL (130-400); WHITE BLOOD COUNT 9.9 10^3/uL (4.3-11.0)
[2020-01-01 07:27] LABS: CHLORIDE 96 MMOL/L (98-107); SODIUM 135 MMOL/L (135-145)
[2020-01-01 07:28] LABS: CALCIUM 8.5 MG/DL (8.5-10.1)
[2020-01-01 07:29] LABS: GLUCOSE 156 MG/DL (70-105)
[2020-01-01 07:30] LABS: CARBON DIOXIDE 30 MMOL/L (21-32)
[2020-01-01 07:33] LABS: CREATININE SERUM 0.75 MG/DL (0.60-1.30); GFR ESTIMATED > 60
[2020-01-01 07:34] LABS: BUN/CREATININE RATIO 21
[2020-01-01 08:00] VITALS: BP 117/64
[2020-01-01] MEDS: dexAMETHasone 6 MG TAB (DECADRON) PO SCH (08:23)
[2020-01-01] MEDS: metFORMIN 500 MG (GLUCOPHAGE) TAB PO SCH ×2 (08:23→20:47)
[2020-01-01] MEDS: DOCUSATE SODIUM 100 MG (COLACE) CAP PO SCH ×2 (08:23→20:47)
[2020-01-01] MEDS: LORATADINE (CLARITIN) 10 MG TAB PO SCH (08:23)
[2020-01-01] MEDS: SENNOSIDES 8.6 MG (SENOKOT) TAB PO SCH ×2 (08:23→20:47)
[2020-01-01] MEDS: PANTOPRAZOLE 20 MG TABLET (PROTONIX) PO SCH (08:23)
[2020-01-01] MEDS: ENOXAPARIN 40 MG/0.4 ML (LOVENOX) SYR SC SCH ×2 (08:23→20:48)
[2020-01-01] MEDS: ENALAPRIL 10 MG (VASOTEC) TAB PO SCH (08:51)
[2020-01-01 12:00] VITALS: BP 110/60
--- NOTE | 2020-01-01 13:22 | Progress Note - Hospitalist ---
Subjective HPI/CC On Admission Date Seen by Provider: Jan 01, 2020 Time Seen by Provider: 13:17 Subjective/Events-last exam Pt reports feeling much better. Oxygen sats only around 90 with 4.5lpm per patient. I checked patient while I was in the room and it was 85%. I increased oxygen ultimately to 10lpm. I was able to start titrating down to 9lpm and he maintained around 93% when I left the room. RN was about to enter and updated to this and will continue to titrate back down. Objective Exam Vital Signs Vital Signs Date Time Temp Pulse Resp B/P (MAP) Pulse Ox O2 Delivery O2 Flow Rate FiO2 01/01/20 12:44 65 01/01/20 09:03 90 Nasal Cannula 4.50 01/01/20 08:00 35.7 18 117/64 (81) Capillary Refill : Less Than 3 SecondsLess Than 3 Seconds General Appearance: No Apparent Distress, WD/WN, Obese Respiratory: Lungs Clear, No Accessory Muscle Use, Other (on NC as per HPI) Cardiovascular: Regular Rate, Rhythm, No Murmur Gastrointestinal: Normal Bowel Sounds, Non Tender, Soft Neurologic/Psychiatric: Alert, Oriented x3 Results/Procedures Lab Laboratory Tests 01/01/20 07:00 Patient resulted labs reviewed. Imaging: Reviewed Imaging Report Assessment/Plan Assessment and Plan Assess & Plan/Chief Complaint COVID-19 Acute respiratory failure with hypoxia -Continue Remdesivir -Continue Decadron -s/p convalescent plasma -Continue supplemental oxygen, wean as able- increased need today -Encouraged proning T2DM Steroid induced hyperglycemia -Continue Metformin -Sliding scale insulin HTN HLD GERD -Continue home meds Morbid obesity -Clinically significant, no acute management needs DVT Prophylaxis: Lovenox Diagnosis/Problems Diagnosis/Problems (1) COVID-19 Status: Acute (2) Morbid obesity Status: Chronic (3) HLD (hyperlipidemia) Status: Chronic Qualifiers: Hyperlipidemia type: unspecified Qualified Codes: E78.5 - Hyperlipidemia, unspecified (4) HTN (hypertension) Status: Chronic Qualifiers: Hypertension type: essential hypertension Qualified Codes: I10 - Essential (primary) hypertension (5) T2DM (type 2 diabetes mellitus) Status: Chronic Qualifiers: Diabetes mellitus snf insulin use: unspecified snf insulin use status Diabetes mellitus complication status: with other specified complication Qualified Codes: E11.69 - Type 2 diabetes mellitus with other specified complication (6) Respiratory failure Status: Acute Qualifiers: Chronicity: acute Respiratory failure complication: hypoxia Qualified Codes: J96.01 - Acute respiratory failure with hypoxia Clinical Quality Measures DVT/VTE Risk/Contraindication: Risk Factor Score Per Nursin RFS Level Per Nursing on Admit: 3=High NATI NICOLE MD Jan 01, 2020 13:22
[2020-01-01 15:39] VITALS: BP 116/74
[2020-01-01 19:54] VITALS: BP 127/59
[2020-01-01] MEDS: REMDESIVIR 100 MG/NS 250 ML IVPB IV SCH ×2 (20:46)
[2020-01-01] MEDS: MELATONIN 3 MG TABLET PO SCH (20:59)
[2020-01-01 23:59] VITALS: BP 141/85
[2020-01-02 04:00] VITALS: BP 118/63
[2020-01-02 05:52] LABS: BASOPHILS % (AUTO) 0 % (0-10); EOSINOPHILS % (AUTO) 0 % (0-10); HEMATOCRIT 39 % (40-54); HEMOGLOBIN 12.9 G/DL (13.3-17.7); LYMPHOCYTES # (AUTO) 0.7 X 10^3 (1.0-4.0); LYMPHOCYTES % (AUTO) 8 % (12-44); MEAN CORPUSCULAR HEMOGLOBIN 30 PG (25-34); MEAN CORPUSCULAR HGB CONC 33 G/DL (32-36); MEAN CORPUSCULAR VOLUME 90 FL (80-99); MONOCYTES # (AUTO) 0.5 X 10^3 (0.0-1.0); MONOCYTES % (AUTO) 6 % (0-12); NEUTROPHILS # (AUTO) 7.3 X 10^3 (1.8-7.8); NEUTROPHILS % (AUTO) 86 % (42-75); PLATELET COUNT 311 10^3/uL (130-400); WHITE BLOOD COUNT 8.6 10^3/uL (4.3-11.0)
[2020-01-02 05:59] LABS: CHLORIDE 96 MMOL/L (98-107); POTASSIUM 4.6 MMOL/L (3.6-5.0); SODIUM 135 MMOL/L (135-145)
[2020-01-02 06:00] LABS: CALCIUM 8.8 MG/DL (8.5-10.1)
[2020-01-02] MEDS: inSUlin ASPART (NovoLOG) 1 UNIT/0.01 ML (CHARGE PER UNIT) SC SCH ×4 (06:00→20:52)
[2020-01-02 06:01] LABS: GLUCOSE 172 MG/DL (70-105)
[2020-01-02 06:02] LABS: CARBON DIOXIDE 31 MMOL/L (21-32)
[2020-01-02 06:04] LABS: CREATININE SERUM 0.77 MG/DL (0.60-1.30); GFR ESTIMATED > 60
[2020-01-02 06:05] LABS: BUN/CREATININE RATIO 18
[2020-01-02 08:00] VITALS: BP 107/69
[2020-01-02] MEDS: SENNOSIDES 8.6 MG (SENOKOT) TAB PO SCH ×2 (09:00→20:51)
[2020-01-02] MEDS: PANTOPRAZOLE 20 MG TABLET (PROTONIX) PO SCH (09:00)
[2020-01-02] MEDS: metFORMIN 500 MG (GLUCOPHAGE) TAB PO SCH ×2 (09:00→20:51)
[2020-01-02] MEDS: dexAMETHasone 6 MG TAB (DECADRON) PO SCH (09:00)
[2020-01-02] MEDS: ENOXAPARIN 40 MG/0.4 ML (LOVENOX) SYR SC SCH ×2 (09:00→20:52)
[2020-01-02] MEDS: DOCUSATE SODIUM 100 MG (COLACE) CAP PO SCH ×2 (09:00→20:59)
[2020-01-02] MEDS: LORATADINE (CLARITIN) 10 MG TAB PO SCH (09:00)
[2020-01-02] MEDS: ENALAPRIL 10 MG (VASOTEC) TAB PO SCH (09:00)
--- NOTE | 2020-01-02 11:45 | Progress Note - Hospitalist ---
Subjective HPI/CC On Admission Date Seen by Provider: Jan 02, 2020 Time Seen by Provider: 11:43 Subjective/Events-last exam Pt reports doing ok today. Oxygen requirement still up but has stabilized. He denies any concerns or needs. Objective Exam Vital Signs Vital Signs Date Time Temp Pulse Resp B/P (MAP) Pulse Ox O2 Delivery O2 Flow Rate FiO2 01/02/20 08:00 36.2 84 20 107/69 (82) 95 Nasal Cannula 9.00 Capillary Refill : Less Than 3 SecondsLess Than 3 Seconds General Appearance: No Apparent Distress, Obese Respiratory: Lungs Clear, No Accessory Muscle Use, Other (on 9lpm) Cardiovascular: Regular Rate, Rhythm, No Murmur Gastrointestinal: Normal Bowel Sounds, Soft Neurologic/Psychiatric: Alert, Oriented x3 Results/Procedures Lab Laboratory Tests 01/02/20 05:40 Patient resulted labs reviewed. Imaging: Reviewed Imaging Report Assessment/Plan Assessment and Plan Assess & Plan/Chief Complaint COVID-19 Acute respiratory failure with hypoxia -Continue Remdesivir, complete course today -Continue Decadron -s/p convalescent plasma -Continue supplemental oxygen, wean as able -Encouraged proning T2DM Steroid induced hyperglycemia - Continue Metformin - Sliding scale insulin HTN HLD GERD -Continue home meds Morbid obesity -Clinically significant, no acute management needs DVT Prophylaxis: Lovenox Diagnosis/Problems Diagnosis/Problems (1) COVID-19 Status: Acute (2) Morbid obesity Status: Chronic (3) HLD (hyperlipidemia) Status: Chronic Qualifiers: Hyperlipidemia type: unspecified Qualified Codes: E78.5 - Hyperlipidemia, unspecified (4) HTN (hypertension) Status: Chronic Qualifiers: Hypertension type: essential hypertension Qualified Codes: I10 - Essential (primary) hypertension (5) T2DM (type 2 diabetes mellitus) Status: Chronic Qualifiers: Diabetes mellitus termite renewal inspector insulin use: unspecified retirement insulin use status Diabetes mellitus complication status: with other specified complication Qualified Codes: E11.69 - Type 2 diabetes mellitus with other specified complication (6) Respiratory failure Status: Acute Qualifiers: Chronicity: acute Respiratory failure complication: hypoxia Qualified Codes: J96.01 - Acute respiratory failure with hypoxia Clinical Quality Measures DVT/VTE Risk/Contraindication: Risk Factor Score Per Nursin RFS Level Per Nursing on Admit: 3=NATI Wiseman MD Jan 02, 2020 11:45
[2020-01-02 12:00] VITALS: BP 115/67
[2020-01-02 16:10] VITALS: BP 112/68
--- NOTE | 2020-01-02 17:30 | NUR ---
CALLED DR NICOLE TO INQUIRE ABOUT TITRATING OXYGEN. ABG ORDERED. ORDER FOR RESP. THERAPY SERVICES. MAT PROTOCOL
[2020-01-02 19:13] LABS: ABG BASE EXCESS 6.4 MMOL/L (-2.5-2.5); ABG OXYGEN SATURATION 96 % (94-100); ABG PCO2 37 MMHG (35-45); ABG PH 7.51 (7.37-7.43); ABG PO2 78 MMHG (79-93); ABG TCO2 30.9 MMOL/L (21.0-31.0)
[2020-01-02 19:14] LABS: ALLENS TEST YES-POS; INSPIRED O2 4.5
[2020-01-02 19:15] LABS: PATIENT TEMP 36.4; VENTILATOR NO
[2020-01-02 19:17] VITALS: BP 112/68
--- NOTE | 2020-01-02 19:37 | Diagnostic Imaging Report ---
Chest 1 view, AP/PA only Indication: Covid-19. Comparison: 12/28/2019. Findings: Progression of multifocal consolidations throughout both lungs. Enlarged cardiac silhouette is unchanged. No pleural effusion or pneumothorax. Impression: Progression of bilateral pulmonary opacities. Dictated by: Dictated on workstation # [id number]
[2020-01-02 19:57] VITALS: BP 117/63
[2020-01-02] MEDS: MELATONIN 3 MG TABLET PO SCH (20:51)
[2020-01-02] MEDS: RT-ALBUTEROL INHALER HFA (VENTOLIN HFA) 18 GM IH SCH (22:29)
[2020-01-03 00:11] VITALS: BP 136/74
[2020-01-03] MEDS: RT-ALBUTEROL INHALER HFA (VENTOLIN HFA) 18 GM IH SCH ×5 (02:43→18:25)
[2020-01-03 03:31] VITALS: BP 111/71
[2020-01-03] MEDS: inSUlin ASPART (NovoLOG) 1 UNIT/0.01 ML (CHARGE PER UNIT) SC SCH ×3 (06:00→18:25)
[2020-01-03 06:43] LABS: BASOPHILS % (AUTO) 0 % (0-10); EOSINOPHILS # (AUTO) 0.1 10^3/uL (0.0-0.3); EOSINOPHILS % (AUTO) 1 % (0-10); HEMATOCRIT 40 % (40-54); HEMOGLOBIN 13.2 G/DL (13.3-17.7); LYMPHOCYTES # (AUTO) 1.2 X 10^3 (1.0-4.0); LYMPHOCYTES % (AUTO) 10 % (12-44); MEAN CORPUSCULAR HEMOGLOBIN 30 PG (25-34); MEAN CORPUSCULAR HGB CONC 33 G/DL (32-36); MEAN CORPUSCULAR VOLUME 89 FL (80-99); MONOCYTES # (AUTO) 0.7 X 10^3 (0.0-1.0); MONOCYTES % (AUTO) 6 % (0-12); NEUTROPHILS # (AUTO) 10.3 X 10^3 (1.8-7.8); NEUTROPHILS % (AUTO) 84 % (42-75); PLATELET COUNT 384 10^3/uL (130-400); WHITE BLOOD COUNT 12.3 10^3/uL (4.3-11.0)
[2020-01-03 07:13] LABS: BUN/CREATININE RATIO 20; CALCIUM 9.4 MG/DL (8.5-10.1); CARBON DIOXIDE 29 MMOL/L (21-32); CHLORIDE 96 MMOL/L (98-107); CREATININE SERUM 0.84 MG/DL (0.60-1.30); GFR ESTIMATED > 60; GLUCOSE 122 MG/DL (70-105); POTASSIUM 4.3 MMOL/L (3.6-5.0); SODIUM 135 MMOL/L (135-145)
[2020-01-03] MEDS: dexAMETHasone 6 MG TAB (DECADRON) PO SCH (07:45)
[2020-01-03] MEDS: SENNOSIDES 8.6 MG (SENOKOT) TAB PO SCH (07:46)
[2020-01-03] MEDS: metFORMIN 500 MG (GLUCOPHAGE) TAB PO SCH (07:46)
[2020-01-03] MEDS: ENOXAPARIN 40 MG/0.4 ML (LOVENOX) SYR SC SCH (07:46)
[2020-01-03] MEDS: DOCUSATE SODIUM 100 MG (COLACE) CAP PO SCH (07:46)
[2020-01-03] MEDS: PANTOPRAZOLE 20 MG TABLET (PROTONIX) PO SCH (07:46)
[2020-01-03] MEDS: LORATADINE (CLARITIN) 10 MG TAB PO SCH (07:46)
[2020-01-03 07:47] VITALS: BP 117/66
[2020-01-03] MEDS: ENALAPRIL 10 MG (VASOTEC) TAB PO SCH (10:39)
[2020-01-03 11:32] VITALS: BP 107/57
--- NOTE | 2020-01-03 12:30 | Discharge Inst-Simple/Standard ---
Discharge Inst-Standard Patient Instructions/Follow Up Plan of Care/Instructions/FU: Please continue to take your medications as written. Please follow up with [facility] [employer] RELATIONS DEPUTY DIRECTOR Carmina Herrera to follow up this hospital stay. Please abide by the health departments isolation and quarantine guidelines. Activity as Tolerated: Yes Discharge Diet: No Restrictions Return to The Hospital For: Chest pain, shortness of breath, fever, confusion, weakness, if you feel you are getting worse. Planned Outpatient Orders/Ref. Pneu Vac Indicated: Yes NATI NICOLE MD Jan 03, 2020 12:30
--- NOTE | 2020-01-03 12:38 | Discharge Summary ---
Diagnosis/Chief Complaint Date of Admission Dec 28, 2019 at 18:00 Date of Discharge Discharge Date: Jan 03, 2020 Primary Care Génesis Herrera Discharge Diagnosis (1) COVID-19 Status: Acute (2) Morbid obesity Status: Chronic (3) HLD (hyperlipidemia) Status: Chronic (4) HTN (hypertension) Status: Chronic (5) T2DM (type 2 diabetes mellitus) Status: Chronic (6) Respiratory failure Status: Acute Discharge Summary Discharge Physical Exam Allergies: Coded Allergies: No Known Drug Allergies (Unverified , 06/08/19) Vitals & I&Os Vital Signs Date Time Temp Pulse Resp B/P (MAP) Pulse Ox O2 Delivery O2 Flow Rate FiO2 01/03/20 16:00 36.0 80 18 107/57 90 High Flow N/C 2.00 01/02/20 19:17 56 General Appearance: No Apparent Distress, WD/WN Respiratory: Lungs Clear, No Respiratory Distress Cardiovascular: Regular Rate, Rhythm, No Murmur Neurologic/Psychiatric: Alert, Oriented x3 Hospital Course Pt is a 54yoCM who was admitted due to COVID19 and acute respiratory failure. He was treated with Remdesivir, decadron, and convalescent plasma and did well. He was able to be titrated down off oxygen and did well on room air. He was tested for oxygen for home and found to need 2lpm continuously. He was discharged home in stable condition to follow up with his primary STAFF GENETIC COUNSELOR Carmina Herrera. Labs (last 24 hrs) Laboratory Tests 01/03/20 17:24: Glucometer 284H Microbiology 12/29/19 Gram Stain - Final, Complete 12/29/19 Sputum Culture - Final, Complete Usual upper respiratory merlin 12/28/19 Blood Culture - Final, Complete No growth Patient resulted labs reviewed. Pending Labs Imaging: Reviewed Imaging Report Discussion & Recommendations Discharge Planning: >30 minutes discharge planning Discharge Home Medications: Active Scripts Active Reported Zyrtec (Cetirizine HCl) 10 Mg Tablet 10 Mg PO DAILY Metformin HCl 500 Mg Tablet 500 Mg PO BID Atorvastatin Calcium 10 Mg Tablet 10 Mg PO HS Omeprazole 20 Mg Capsule.dr 20 Mg PO HS Enalapril Maleate 10 Mg Tablet 10 Mg PO DAILY Instructions to patient/family Please see electronic discharge instructions given to patient. Clinical Quality Measures DVT/VTE Risk/Contraindication: Risk Factor Score Per Nursin RFS Level Per Nursing on Admit: 3=High Copy Copies To 1: Carmina Herrera Problem Qualifiers (1) HLD (hyperlipidemia): Hyperlipidemia type: unspecified Qualified Codes: E78.5 - Hyperlipidemia, unspecified (2) HTN (hypertension): Hypertension type: essential hypertension Qualified Codes: I10 - Essential (primary) hypertension (3) T2DM (type 2 diabetes mellitus): Diabetes mellitus lobsterman insulin use: unspecified lobsterman insulin use status Diabetes mellitus complication status: with other specified complication Qualified Codes: E11.69 - Type 2 diabetes mellitus with other specified complication (4) Respiratory failure: Chronicity: acute Respiratory failure complication: hypoxia Qualified Codes: J96.01 - Acute respiratory failure with hypoxia NATI NICOLE MD Jan 03, 2020 12:38
--- NOTE | 2020-01-03 14:28 | NUR ---
SPO2 86% ON ROOM AIR @ REST. REPLACED O2 @ 2 LPM. SPO2 INCREASED TO 90%. Addendum: 01/03/20 at 1433 by ELSA HILLMAN RT Amended: Links added.
[2020-01-03 16:00] VITALS: BP 107/57
--- NOTE | 2020-01-03 19:26 | NUR ---
02 HERE FROM [employer] [facility]ris [facility]AVAGE - PATIENT DISCHARGED AT 2 LITERS OF O2 PORTABLE AND ARRANGEMENTS FOR HOME O2 WITH COMPANY AND FOR HOME SET UP DONE
== END 2020-01-03 19:24 | disposition home or self-care (01) | DRG 177 ==
LOC: EDUNIT# 16:46 → ER 16:48 → ICU 18:00 → 4TH 12-30 08:10
PROVIDERS: ADMIT Internal Medicine; ATTEND Internal Medicine
PROC: XW033E5 Introduction of Remdesivir Anti-infective into Peripheral Vein, Percutaneous Approach, New Technology Group 5 (ICD-10-PCS; principal; 2019-12-28)
PROC: XW13325 Transfusion of Convalescent Plasma (Nonautologous) into Peripheral Vein, Percutaneous Approach, New Technology Group 5 (ICD-10-PCS; 2019-12-29)
DX: U07.1 COVID-19 (principal); J12.89 Other viral pneumonia; J96.01 Acute respiratory failure with hypoxia; Z68.41 Body mass index [BMI] 40.0-44.9, adult; E66.9 Obesity, unspecified; I10 Essential (primary) hypertension; E11.9 Type 2 diabetes mellitus without complications; F17.220 Nicotine dependence, chewing tobacco, uncomplicated; Z96.21 Cochlear implant status
CPT/HCPCS: 36415; 36600; 71045; 80048; 80053; 82805; 82962; 83605; 83615; 83735; 83880; 84100; 84145; 84484; 85007; 85025; 85027; 85379; 85610; 85730; 86141; 86850; 86900; 86901; 87040; 87070; 87205; 87635; 93005; 94640; 94664; 94760; 94761; 96361; 96372; 96374; 96375

== ENCOUNTER 2020-01-21 14:17 | Inpatient (IN) | payer BC ==
[~2020-01-21] VITALS: Ht 172.7 cm; Wt 141.9 kg
[~2020-01-21 14:17] MED LIST changes: -APIX5TAB PO; -CATHETER FLUSH 10 ML SYR IV PRN; -HOLD METFORMIN - RECEIVED CONTRAST 20 ML VIAL IV SCH; -IOHEXOL 350 MG/ML 100 ML (OMNIPAQUE 350) VIAL IV ONE; -NS 100 ML (IVPB) BAG IV ONE
--- NOTE | 2020-01-21 14:34 | ED Cough/URI ---
General Chief Complaint: Respiratory Problems Stated Complaint: PULMONARY EMOBOLISM Source: patient Exam Limitations: no limitations History of Present Illness Date Seen by Provider: Jan 21, 2020 Time Seen by Provider: 14:30 Initial Comments This HTN, DM, HLD, obese male to ER per wheelchair from radiology department with reports of pulmonary embolism. Patient was admitted here from December 27 to January 02 for COVID 19. His symptoms actually began 12/25/19. He underwent treatment with Remdesivir and convalescent plasma and was discharged on 01/03/20 with home O2 at 2 L. He followed up with primary care today, Carmina Stafford, who ordered an outpatient CT angiogram of the chest due to ongoing shortness of breath. Preliminary CT report showed right-sided pulmonary emboli, he was referred to ER awaiting radiologist interpretation. Timing/Duration: constant, other (neither improving nor worsening) Associated Symptoms: cough, fever/chills, shortness of breath Allergies and Home Medications Allergies Coded Allergies: No Known Drug Allergies (Unverified , 06/08/19) Home Medications Atorvastatin Calcium 10 Mg Tablet, 10 MG PO HS, (Reported) Cetirizine HCl 10 Mg Tablet, 10 MG PO DAILY, (Reported) Enalapril Maleate 10 Mg Tablet, 10 MG PO DAILY, (Reported) Metformin HCl 500 Mg Tablet, 500 MG PO BID, (Reported) Omeprazole 20 Mg Capsule.dr, 20 MG PO HS, (Reported) Patient Home Medication List Home Medication List Reviewed: Yes Review of Systems Review of Systems Constitutional: see HPI EENTM: see HPI Respiratory: see HPI, cough, dyspnea on exertion Cardiovascular: No see HPI, No chest pain Genitourinary: no symptoms reported Musculoskeletal: no symptoms reported Skin: no symptoms reported Psychiatric/Neurological: No Symptoms Reported Hematologic/Lymphatic: No Symptoms Reported Immunological/Allergic: no symptoms reported Past Lptljnx-Kjbljr-Hohofh Hx Patient Social History Alcohol Use: Denies Use Recreational Drug Use: No Type Used: Smokeless Tobacco 2nd Hand Smoke Exposure: No Recent Hopitalizations: No Immunizations Up To Date Tetanus Booster (TDap): Unknown PED Vaccines UTD: Yes Past Medical History Surgeries: Yes Gallbladder, Orthopedic Respiratory: No Cardiac: Yes Hypertension Neurological: No Reproductive Disorders: No Genitourinary: No Gastrointestinal: No Musculoskeletal: No Endocrine: Yes Diabetes, Non-Insulin dep HEENT: Yes (cochlear implant) Loss of Vision: Denies Cancer: No Psychosocial: No Integumentary: No Physical Exam Vital Signs - First Documented 01/21/20 14:20 Pulse 111 Resp 20 Pulse Ox 94 O2 Delivery Room Air Capillary Refill : Height: '" Weight: 310lbs. 0.0oz. 140.491318kz; 48.00 BMI Method: General Appearance: WD/WN, no apparent distress, other (no distress. Blood pressure is 128/87 heart rate is 107 oxygen 93% on his baseline 2 L, respiratory rate 26. Laughing and joking with us) Eyes: Bilateral Eye Normal Inspection, Bilateral Eye PERRL, Bilateral Eye EOMI Respiratory: no respiratory distress, no accessory muscle use Gastrointestinal: normal bowel sounds, non tender, soft Neurologic/Psychiatric: alert, normal mood/affect, oriented x 3 Skin: normal color, warm/dry Progress/Results/Core Measures Suspected Sepsis SIRS Temperature: Pulse: Respiratory Rate: Laboratory Tests 01/21/20 14:32: White Blood Count 7.9 Blood Pressure / Mean: Laboratory Tests 01/21/20 14:32: Creatinine 0.97, Platelet Count 277, Total Bilirubin 0.4 Results/Orders Lab Results Laboratory Tests Test 01/21/20 14:32 Range/Units White Blood Count 7.9 4.3-11.0 10^3/uL Red Blood Count 4.55 4.30-5.52 10^6/uL Hemoglobin 13.6 13.3-17.7 g/dL Hematocrit 42 40-54 % Mean Corpuscular Volume 92 80-99 fL Mean Corpuscular Hemoglobin 30 25-34 pg Mean Corpuscular Hemoglobin Concent 33 32-36 g/dL Red Cell Distribution Width 13.9 10.0-14.5 % Platelet Count 277 130-400 10^3/uL Mean Platelet Volume 9.9 9.0-12.2 fL Immature Granulocyte % (Auto) 1 % Neutrophils (%) (Auto) 62 42-75 % Lymphocytes (%) (Auto) 19 12-44 % Monocytes (%) (Auto) 12 0-12 % Eosinophils (%) (Auto) 6 0-10 % Basophils (%) (Auto) 1 0-10 % Neutrophils # (Auto) 4.9 1.8-7.8 10^3/uL Lymphocytes # (Auto) 1.5 1.0-4.0 10^3/uL Monocytes # (Auto) 0.9 0.0-1.0 10^3/uL Eosinophils # (Auto) 0.5 H 0.0-0.3 10^3/uL Basophils # (Auto) 0.1 0.0-0.1 10^3/uL Immature Granulocyte # (Auto) 0.0 0.0-0.1 10^3/uL Sodium Level 135 135-145 MMOL/L Potassium Level 4.5 3.6-5.0 MMOL/L Chloride Level 100 98-107 MMOL/L Carbon Dioxide Level 23 21-32 MMOL/L Anion Gap 12 5-14 MMOL/L Blood Urea Nitrogen 11 7-18 MG/DL Creatinine 0.97 0.60-1.30 MG/DL Estimat Glomerular Filtration Rate > 60 BUN/Creatinine Ratio 11 Glucose Level 147 H 70-105 MG/DL Calcium Level 9.3 8.5-10.1 MG/DL Corrected Calcium 9.3 8.5-10.1 MG/DL Total Bilirubin 0.4 0.1-1.0 MG/DL Aspartate Amino Transf (AST/SGOT) 30 5-34 U/L Alanine Aminotransferase (ALT/SGPT) 45 0-55 U/L Alkaline Phosphatase 56 40-136 U/L Total Protein 7.2 6.4-8.2 GM/DL Albumin 4.0 3.2-4.5 GM/DL My Orders Orders - PAULINE KAYE TRENCH PIPE LAYER Cbc With Automated Diff (01/21/20 14:21) Comprehensive Metabolic Panel (01/21/20 14:21) Ed Iv/Invasive Line Start (01/21/20 14:21) Ekg Tracing (01/21/20 14:21) Apixaban Tablet (Eliquis Tablet) (01/21/20 14:45) Vital Signs/I&O 01/21/20 14:20 Pulse 111 Resp 20 B/P (MAP) Pulse Ox 94 O2 Delivery Room Air Capillary Refill : Diagnostic Imaging Diagonstic Imaging: CT Comments NAME: DIMARIA ISABEL JR [facility] REC#: [id number] PT STATUS: REG CLI : 1965 PHYSICIAN: EV STAFFORD ADMIT DATE: 01/21/20/RAD Signed Date of Exam:01/21/20 CT ANGIO CHEST W EXAMINATION: CT angiography of the chest. TECHNIQUE: Contrast enhanced thin section helical images were obtained through the chest with intravenous contrast timed for the optimal opacification of the arterial structures per CTA protocol. Post- processing, reconstructions and interpretation of angiographic images of the vessels was performed. 3D MIP reconstructions were performed and reviewed. All CT scans use one or more of the following dose optimizing techniques: automated exposure control, MA and/or KvP adjustment based on a patient size and exam type, or iterative reconstruction. HISTORY: Shortness of breath and cough COMPARISON: None available. FINDINGS: Pulmonary emboli are present in the segmental branches of the right lower lobe and right middle lobe. There are patchy areas of groundglass throughout both lungs. No CT evidence of right heart strain. Heart size is normal. Aorta is normal in caliber. No pericardial effusion. No lymphadenopathy is seen. There is no pleural effusion or pneumothorax. Limited views. Noted interval changes of cholecystectomy. There are no suspicious osseous lesions. IMPRESSION: 1. Acute pulmonary emboli in the right middle and lower lobes. 2. Scattered groundglass throughout both lungs in a pattern most suggestive of an infection including COVID 19. Critical findings called to CLAYTON Michele by Dr. Zarate on 01/21/2020 at 1437 hours. Dictated by: Dictated on workstation # [id number] Dict: 01/21/20 1434 Trans: 01/21/20 1446 CVB [id number] Interpreted by: VERENICE ZARATE MD Electronically signed by: VERENICE ZARATE MD 01/21/20 1446 Departure Communication (Admissions) Time/Spoke to Admitting Phy: 15:[address] Echevarria, would like to use Eliqumyesha Patient is hemodynamically stable. I Spoke with Dr santoyo, will admit. Impression Primary Impression: Pulmonary embolism Additional Impression: Hypercoagulable state associated with COVID-19 Disposition: ADMITTED INPATIENT Condition: Stable Admissions Decision to Admit Reason: Admit from ER (General) Decision to Admit/Date: Jan 21, 2020 Time/Decision to Admit Time: 15:10 Departure-Patient Inst. Referrals: NO,LOCAL PHYSICIAN (PCP) Primary Care Physician EV STAFFORD (Family) Primary Care Physician PAULINE KAYE APRN Jan 21, 2020 14:34
[2020-01-21 14:40] LABS: BASOPHILS # (AUTO) 0.1 10^3/uL (0.0-0.1); BASOPHILS % (AUTO) 1 % (0-10); EOSINOPHILS # (AUTO) 0.5 10^3/uL (0.0-0.3); EOSINOPHILS % (AUTO) 6 % (0-10); HEMATOCRIT 42 % (40-54); HEMOGLOBIN 13.6 g/dL (13.3-17.7); LYMPHOCYTES # (AUTO) 1.5 10^3/uL (1.0-4.0); LYMPHOCYTES % (AUTO) 19 % (12-44); MEAN CORPUSCULAR HEMOGLOBIN 30 pg (25-34); MEAN CORPUSCULAR HGB CONC 33 g/dL (32-36); MEAN CORPUSCULAR VOLUME 92 fL (80-99); MEAN PLATELET VOLUME 9.9 fL (9.0-12.2); MONOCYTES # (AUTO) 0.9 10^3/uL (0.0-1.0); MONOCYTES % (AUTO) 12 % (0-12); NEUTROPHILS # (AUTO) 4.9 10^3/uL (1.8-7.8); NEUTROPHILS % (AUTO) 62 % (42-75); PLATELET COUNT 277 10^3/uL (130-400); WHITE BLOOD COUNT 7.9 10^3/uL (4.3-11.0)
[2020-01-21] MEDS ORDERED: APIXABAN 5 MG (ELIQUIS) TABLET PO SCH (14:45)
[2020-01-21 14:49] LABS: CHLORIDE 100 MMOL/L (98-107); POTASSIUM 4.5 MMOL/L (3.6-5.0); SODIUM 135 MMOL/L (135-145)
[2020-01-21 14:51] LABS: CALCIUM 9.3 MG/DL (8.5-10.1)
[2020-01-21 14:52] LABS: GLUCOSE 147 MG/DL (70-105); TOTAL PROTEIN 7.2 GM/DL (6.4-8.2)
[2020-01-21 14:53] LABS: CARBON DIOXIDE 23 MMOL/L (21-32)
[2020-01-21 14:54] LABS: BILIRUBIN,TOTAL 0.4 MG/DL (0.1-1.0)
[2020-01-21 14:55] LABS: ALKALINE PHOSPHATASE 56 U/L (40-136)
[2020-01-21 14:56] LABS: CREATININE SERUM 0.97 MG/DL (0.60-1.30); GFR ESTIMATED > 60
[2020-01-21 14:57] LABS: BUN/CREATININE RATIO 11
[2020-01-21 14:58] LABS: ALANINE AMINOTRANSFERASE 45 U/L (0-55)
[2020-01-21] MEDS ORDERED: APIXABAN 5 MG (ELIQUIS) TABLET ONE (15:44)
[2020-01-21] MEDS ORDERED: LACTATED RINGERS 1,000 ML IV ONE (16:07)
[2020-01-21 16:15] VITALS: BP 145/94
[2020-01-21] MEDS ORDERED: CATHETER FLUSH 10 ML SYR IV PRN (16:30)
[2020-01-21] MEDS: LACTATED RINGERS 1,000 ML IV SCH (16:35)
[2020-01-21] MEDS: inSUlin ASPART (NovoLOG) 1 UNIT/0.01 ML (CHARGE PER UNIT) SC SCH ×2 (16:36→21:09)
[2020-01-21] MEDS ORDERED: PANTOPRAZOLE 40 MG (PROTONIX) VIAL IV SCH (17:00)
[2020-01-21] MEDS ORDERED: BISACODYL 10 MG SUPP (DULCOLAX) PR PRN (18:00)
[2020-01-21] MEDS ORDERED: fentaNYL INJECTION 100 MCG/2 ML AMP IVP PRN (18:00)
[2020-01-21] MEDS ORDERED: CALCIUM CARBONATE 500 MG (TUMS) TAB.CHEW PO PRN (18:00)
[2020-01-21] MEDS ORDERED: MELATONIN 3 MG TABLET PO PRN (18:00)
[2020-01-21] MEDS ORDERED: LOPERAMIDE 2 MG (IMODIUM) TABLET PO PRN (18:00)
[2020-01-21] MEDS ORDERED: diphenhydrAMINE 25 MG TAB (BENADRYL) PO PRN (18:00)
[2020-01-21] MEDS ORDERED: ONDANSETRON 4 MG/2 ML (SDV) Z0FRAN IVP PRN (18:00)
[2020-01-21] MEDS ORDERED: ALPRAZolam 0.25 MG (XANAX) TAB PO PRN (18:00)
[2020-01-21] MEDS ORDERED: ACETAMINOPHEN 500 MG TAB (TYLENOL) PO PRN (18:00)
[2020-01-21] MEDS ORDERED: DOCUSATE SODIUM 100 MG (COLACE) CAP PO PRN (18:00)
[2020-01-21] MEDS ORDERED: HYDROcodone/APAP 5 MG/325 MG (LORTAB) TAB PO PRN (18:00)
[2020-01-21 20:00] VITALS: BP 148/96
[2020-01-21] MEDS: polyethylene glycoL POWDER 17 GM (MIRALAX) PACK PO SCH (21:09)
[2020-01-21] MEDS: SENNA W/DOCUSATE (SENOKOT S) TABLET PO SCH (21:09)
[2020-01-21] MEDS: APIXABAN 5 MG (ELIQUIS) TABLET PO SCH (21:12)
[2020-01-22] VITALS (11 sets, daily range): BP systolic 118–154; BP diastolic 72–94
[2020-01-22] MEDS: LACTATED RINGERS 1,000 ML IV SCH ×3 (02:16→21:51)
[2020-01-22 03:58] LABS: BASOPHILS % (AUTO) 1 % (0-10); EOSINOPHILS # (AUTO) 0.6 10^3/uL (0.0-0.3); EOSINOPHILS % (AUTO) 10 % (0-10); HEMATOCRIT 38 % (40-54); HEMOGLOBIN 12.3 g/dL (13.3-17.7); LYMPHOCYTES # (AUTO) 1.6 10^3/uL (1.0-4.0); LYMPHOCYTES % (AUTO) 26 % (12-44); MEAN CORPUSCULAR HEMOGLOBIN 30 pg (25-34); MEAN CORPUSCULAR HGB CONC 32 g/dL (32-36); MEAN CORPUSCULAR VOLUME 92 fL (80-99); MEAN PLATELET VOLUME 10.2 fL (9.0-12.2); MONOCYTES # (AUTO) 0.9 10^3/uL (0.0-1.0); MONOCYTES % (AUTO) 14 % (0-12); NEUTROPHILS # (AUTO) 3.2 10^3/uL (1.8-7.8); NEUTROPHILS % (AUTO) 50 % (42-75); PLATELET COUNT 240 10^3/uL (130-400); WHITE BLOOD COUNT 6.4 10^3/uL (4.3-11.0)
[2020-01-22 04:10] LABS: CHLORIDE 100 MMOL/L (98-107); POTASSIUM 4.1 MMOL/L (3.6-5.0); SODIUM 137 MMOL/L (135-145)
[2020-01-22 04:11] LABS: CALCIUM 8.9 MG/DL (8.5-10.1)
[2020-01-22 04:12] LABS: GLUCOSE 133 MG/DL (70-105)
[2020-01-22 04:13] LABS: CARBON DIOXIDE 25 MMOL/L (21-32)
[2020-01-22 04:15] LABS: PHOSPHORUS 3.9 MG/DL (2.3-4.7)
[2020-01-22 04:16] LABS: BUN/CREATININE RATIO 11; CREATININE SERUM 0.87 MG/DL (0.60-1.30); GFR ESTIMATED > 60
[2020-01-22 04:18] LABS: MAGNESIUM 1.7 MG/DL (1.6-2.4)
--- NOTE | 2020-01-22 05:20 | Pulmonary Consultation ---
History of Present Illness History of Present Illness Date Seen by Provider: Jan 22, 2020 Time Seen by Provider: 05:15 Date of Admission Allergies and Home Medications Allergies Coded Allergies: No Known Drug Allergies (Unverified , 06/08/19) Home Medications Atorvastatin Calcium 10 Mg Tablet, 10 MG PO HS, (Reported) Cetirizine HCl 10 Mg Tablet, 10 MG PO DAILY, (Reported) Enalapril Maleate 10 Mg Tablet, 10 MG PO DAILY, (Reported) Metformin HCl 500 Mg Tablet, 500 MG PO BID, (Reported) Omeprazole 20 Mg Capsule.dr, 20 MG PO HS, (Reported) Past Rbkcspl-Pdfauc-Ncjsdr Hx Patient Social History Alcohol Use: Denies Use Recreational Drug Use: No Type Used: Smokeless Tobacco 2nd Hand Smoke Exposure: No Recent Foreign Travel: No Contact w/Someone Who Travel: No Recent Infectious Disease Expo: Yes (COVID 19) Recent Hopitalizations: No Immunizations Up To Date Tetanus Booster (TDap): Unknown PED Vaccines UTD: Yes Past Medical History Surgeries: Yes Gallbladder, Orthopedic Respiratory: No Cardiac: Yes Hypertension Neurological: No Reproductive Disorders: No Genitourinary: No Gastrointestinal: No Musculoskeletal: No Endocrine: Yes Diabetes, Non-Insulin dep HEENT: Yes (cochlear implant) Loss of Vision: Denies Cancer: No Psychosocial: No Integumentary: No Review of Systems Time Seen by Provider: 05:20 Sepsis Event Evaluation Height, Weight, BMI Height: '" Weight: 310lbs. 0.0oz. 140.039019ai; 46.70 BMI Method: Exam Exam Vital Signs Date Time Temp Pulse Resp B/P (MAP) Pulse Ox O2 Delivery O2 Flow Rate FiO2 01/22/20 04:00 92 Nasal Cannula 2.00 01/22/20 04:00 36.8 84 22 148/88 (108) 95 OxyMask 3.00 01/22/20 02:19 OxyMask 3.00 01/22/20 02:16 Nasal Cannula 2.00 01/22/20 02:00 93 19 118/82 (94) 96 Nasal Cannula 3.00 01/22/20 01:26 Nasal Cannula 3.00 01/22/20 01:00 85 24 125/72 (89) 93 Nasal Cannula 2.00 01/22/20 01:00 85 01/22/20 00:00 93 32 132/78 (96) 93 Nasal Cannula 2.00 01/22/20 00:00 92 Nasal Cannula 2.00 01/21/20 23:11 36.1 01/21/20 21:00 Nasal Cannula 2.00 01/21/20 20:00 92 22 148/96 (113) 92 Nasal Cannula 2.00 01/21/20 20:00 92 Nasal Cannula 2.00 01/21/20 19:30 37.2 94 20 92 Nasal Cannula 01/21/20 19:00 102 01/21/20 16:15 37.1 96 18 145/94 95 Nasal Cannula 2.00 28.00 01/21/20 16:15 92 25 145/94 (111) 95 Room Air 01/21/20 15:45 107 27 104/80 94 Nasal Cannula 2.00 01/21/20 14:20 111 20 94 Room Air I & O 01/22/20 07:00 Intake Total 1890 ml Output Total 325 ml Balance 1565 ml Height & Weight Height: '" Weight: 310lbs. 0.0oz. 140.220699fh; 46.70 BMI Method: Capillary Refill: Less Than 3 Seconds Gastrointestinal: normal bowel sounds, non tender, soft Results Lab Laboratory Tests 01/21/20 14:32 01/22/20 03:30 Assessment/Plan Assessment/Plan Acute PE -Eliquis -Check echo -Bilateral dopplers s/p COVID -was hospitalized and discharged 01/[address] scan -Persistent nonproductive cough -No fevers, no leukocytosis BLAS JONES DO Jan 22, 2020 05:20
[2020-01-22] MEDS: inSUlin ASPART (NovoLOG) 1 UNIT/0.01 ML (CHARGE PER UNIT) SC SCH ×4 (05:39→20:37)
[2020-01-22] MEDS: PANTOPRAZOLE 40 MG (PROTONIX) TAB PO SCH (06:12)
[2020-01-22] MEDS: dexAMETHasone 6 MG TAB (DECADRON) PO SCH (06:12)
--- NOTE | 2020-01-22 06:28 | Short Stay Summary-Hospitalist ---
History of Present Illness HPI/Chief Complaint CC: Dyspnea HPI: This is a 54yoWM clinic patient of Carmina Herrera who presented to the [facility] ER after Carmina was called with CT angiogram presence of PE and she called me. I contacted ER and sent him there for evaluation. OAC was started and Dr Echevarria was consulted. To note patient had COVID-19 on 01/02 and received full treatment for that and DC home on 2 L/min O2 and has been doing well since that time. He has been on quarantine due to cough and dyspnea since that time and has been walking around in his house but he has been home bound. He also had a right leg fracture in 06/[address] Hook because his right knee joint is severely compromised. He has CRISELDA but non-compliant with CPAP at home where he lives with his . He works as maintenance at [employer]. Source: patient Exam Limitations: no limitations Date Seen 01/22/20 Time Seen by a Provider: 12:00 Attending Physician Vanessa Nunez DO PCP No,Local Physician Referring Physician Date of Admission Jan 21, 2020 at 14:37 Home Medications & Allergies Home Medications Reviewed patient Home Medication Reconciliation performed by pharmacy medication reconciliations pharmacist technician and/or nursing. Patients Allergies have been reviewed. Allergies Allergies Coded Allergies No Known Drug Allergies (Unverified06/08/19) Past Vbdmqpg-Tnaqdu-Iirgxc Hx Past Med/Social Hx: Reviewed Nursing Past Med/Soc Hx, Reviewed and Corrections made Patient Social History Marrital Status: Employed/Student: employed Alcohol Use: Denies Use Recreational Drug Use: No Smoking Status: Never a Smoker Type Used: Smokeless Tobacco 2nd Hand Smoke Exposure: No Recent Foreign Travel: No Contact w/other who traveled: No Recent Hopitalizations: No Recent Infectious Disease Expo: Yes (COVID 19) Immunizations Up To Date Tetanus Booster (TDap): Unknown Pediatric: Yes Past Medical History Surgeries: Gallbladder, Orthopedic Respiratory: Sleep Apnea Currently Using CPAP: No Cardiac: Hypertension Reproductive: No Endocrine: Diabetes, Non-Insulin dep Loss of Vision: Denies Review of Systems Constitutional: see HPI Respiratory: cough, dyspnea on exertion Physical Exam Physical Exam Vital Signs Vital Signs - First Documented 01/21/20 01/21/20 01/21/20 14:20 15:45 16:15 Temp 37.1 Pulse 111 Resp 20 B/P (MAP) 104/80 Pulse Ox 94 O2 Delivery Room Air O2 Flow Rate 2.00 Capillary Refill : Less Than 3 Seconds Height, Weight, BMI Height: '" Weight: 310lbs. 0.0oz. 140.260925ld; 46.70 BMI Method: General Appearance: No Apparent Distress, WD/WN, Chronically ill, Obese Eyes: Bilateral Eye Normal Inspection, Bilateral Eye PERRL, Bilateral Eye EOMI HEENT: PERRL/EOMI, Normal ENT Inspection, Pharynx Normal Neck: Full Range of Motion, Normal Inspection, Non Tender, Supple, Carotid Bruit Respiratory: Chest Non Tender, Lungs Clear, Normal Breath Sounds, No Accessory Muscle Use, No Respiratory Distress, Decreased Breath Sounds Cardiovascular: Regular Rate, Rhythm, No Edema, No Gallop, No JVD, No Murmur, Normal Peripheral Pulses Gastrointestinal: Normal Bowel Sounds, No Organomegaly, No Pulsatile Mass, Non Tender, Soft Back: Normal Inspection, No CVA Tenderness, No Vertebral Tenderness Extremity: Normal Capillary Refill, Normal Inspection, Normal Range of Motion, Non Tender, No Calf Tenderness, No Pedal Edema Neurologic/Psychiatric: Alert, Oriented x3, No Motor/Sensory Deficits, Normal Mood/Affect Skin: Normal Color, Warm/Dry Lymphatic: No Adenopathy Results Results/Procedures Labs Laboratory Tests 01/21/20 14:32 01/22/20 03:30 01/23/20 05:05 Patient resulted labs reviewed. Short Stay Diagnosis Discharge Diagnosis-Short Stay Admission Diagnosis Assessment: Acute PE Dyspnea COVID-19 DC after treatment 01/03/20 CRISELDA non-compliant with CPAP Obesity RIght leg fracture 06/17 HTN DM Plan: Dr Echevarria consult OAC O2 Final Discharge Diagnosis Assessment: Acute PE Dyspnea COVID-19 DC after treatment 01/03/20 CRISELDA non-compliant with CPAP Obesity RIght leg fracture 06/17 HTN DM Plan: Dr Echevarria consult OAC O2 Conclusion Plan Plan: Dr Echevarria consult OAC O2 Diagnosis/Problems Diagnosis/Problems (1) Pulmonary embolism Status: Acute (2) CRISELDA (obstructive sleep apnea) (3) Hypercoagulable state associated with COVID-19 Status: Acute (4) RESPIRATORY FAILURE, UNSP, UNSP W HYPOXIA OR HYPERCAPNIA (5) T2DM (type 2 diabetes mellitus) Status: Chronic (6) HLD (hyperlipidemia) Status: Chronic (7) HTN (hypertension) Status: Chronic (8) GERD (gastroesophageal reflux disease) Status: Chronic (9) Morbid obesity Status: Chronic (10) Fracture of tibial shaft, right, closed Status: Acute Clinical Quality Measures DVT/VTE Risk/Contraindication: Risk Factor Score Per Nursin RFS Level Per Nursing on Admit: 3=High VANESSA NUNEZ DO Jan 22, 2020 06:28
--- NOTE | 2020-01-22 08:31 | Diagnostic Imaging Report ---
Indication: Dyspnea, COVID pneumonia. Comparison: 01/02/2020. Discussion: Single portable upright view of the chest was obtained. Patchy infiltrates are again noted bilaterally, decreased from the prior. Findings are consistent with residual pneumonia. No pleural fluid or pneumothorax. Normal heart size. No osseous abnormality. Impression: 1. Decreased though persistent bilateral groundglass infiltrates. Dictated by: Dictated on workstation # [id number]
[2020-01-22] MEDS ORDERED: PANTOPRAZOLE 40 MG (PROTONIX) TAB PO SCH (09:00)
[2020-01-22] MEDS ORDERED: RT-ALBUTEROL INHALER HFA (VENTOLIN HFA) 18 GM IH PRN (09:15)
[2020-01-22] MEDS: polyethylene glycoL POWDER 17 GM (MIRALAX) PACK PO SCH ×2 (09:25→20:38)
[2020-01-22] MEDS: APIXABAN 5 MG (ELIQUIS) TABLET PO SCH ×2 (09:25→20:36)
[2020-01-22] MEDS: SENNA W/DOCUSATE (SENOKOT S) TABLET PO SCH ×2 (09:26→20:36)
[2020-01-22] MEDS: RT-ALBUTEROL INHALER HFA (VENTOLIN HFA) 18 GM IH SCH (18:47)
[2020-01-23] VITALS: BP 137/88
[2020-01-23 04:00] VITALS: BP 132/68
[2020-01-23 05:18] LABS: BASOPHILS % (AUTO) 0 % (0-10); EOSINOPHILS % (AUTO) 0 % (0-10); HEMATOCRIT 37 % (40-54); LYMPHOCYTES # (AUTO) 1.1 10^3/uL (1.0-4.0); LYMPHOCYTES % (AUTO) 15 % (12-44); MEAN CORPUSCULAR HEMOGLOBIN 30 pg (25-34); MEAN CORPUSCULAR HGB CONC 33 g/dL (32-36); MEAN CORPUSCULAR VOLUME 92 fL (80-99); MEAN PLATELET VOLUME 10.2 fL (9.0-12.2); MONOCYTES # (AUTO) 0.9 10^3/uL (0.0-1.0); MONOCYTES % (AUTO) 11 % (0-12); NEUTROPHILS # (AUTO) 5.5 10^3/uL (1.8-7.8); NEUTROPHILS % (AUTO) 73 % (42-75); PLATELET COUNT 268 10^3/uL (130-400); WHITE BLOOD COUNT 7.6 10^3/uL (4.3-11.0)
[2020-01-23 05:31] LABS: CHLORIDE 100 MMOL/L (98-107); POTASSIUM 4.4 MMOL/L (3.6-5.0); SODIUM 134 MMOL/L (135-145)
[2020-01-23 05:32] LABS: GLUCOSE 236 MG/DL (70-105)
[2020-01-23 05:34] LABS: CARBON DIOXIDE 24 MMOL/L (21-32)
[2020-01-23 05:36] LABS: CREATININE SERUM 0.87 MG/DL (0.60-1.30); GFR ESTIMATED > 60; PHOSPHORUS 2.8 MG/DL (2.3-4.7)
[2020-01-23 05:37] LABS: BUN/CREATININE RATIO 14
[2020-01-23 05:39] LABS: MAGNESIUM 1.8 MG/DL (1.6-2.4)
[2020-01-23] MEDS: dexAMETHasone 6 MG TAB (DECADRON) PO SCH (06:15)
[2020-01-23] MEDS: PANTOPRAZOLE 40 MG (PROTONIX) TAB PO SCH (06:15)
[2020-01-23] MEDS: inSUlin ASPART (NovoLOG) 1 UNIT/0.01 ML (CHARGE PER UNIT) SC SCH ×4 (06:16→20:19)
[2020-01-23] MEDS: LACTATED RINGERS 1,000 ML IV SCH ×2 (06:18→16:12)
[2020-01-23 08:00] VITALS: BP 137/75
--- NOTE | 2020-01-23 08:10 | Diagnostic Imaging Report ---
Indication: Dyspnea. Comparison: 01/22/2020. Discussion: Single portable upright view of the chest was obtained. Cardiomegaly is stable. Bilateral mixed interstitial and alveolar infiltrates are stable given differences in technique. No pleural fluid or pneumothorax. No osseous abnormality. Impression: 1. Stable cardiomegaly and bilateral infiltrates. Dictated by: Dictated on workstation # [id number]
[2020-01-23] MEDS: SENNA W/DOCUSATE (SENOKOT S) TABLET PO SCH ×2 (08:57→20:19)
[2020-01-23] MEDS: polyethylene glycoL POWDER 17 GM (MIRALAX) PACK PO SCH ×2 (08:58→20:20)
[2020-01-23] MEDS: APIXABAN 5 MG (ELIQUIS) TABLET PO SCH ×2 (08:58→20:19)
[2020-01-23] MEDS: RT-ALBUTEROL INHALER HFA (VENTOLIN HFA) 18 GM IH SCH ×2 (11:45→18:35)
[2020-01-23 12:00] VITALS: BP 129/72
[2020-01-23 16:41] VITALS: BP 137/74
[2020-01-23 19:09] VITALS: BP 135/78
[2020-01-24] VITALS: BP 136/81
[2020-01-24] MEDS: LACTATED RINGERS 1,000 ML IV SCH ×2 (02:21→14:39)
[2020-01-24 04:00] VITALS: BP 123/78
[2020-01-24] MEDS: dexAMETHasone 6 MG TAB (DECADRON) PO SCH (06:01)
[2020-01-24] MEDS: inSUlin ASPART (NovoLOG) 1 UNIT/0.01 ML (CHARGE PER UNIT) SC SCH ×2 (06:01→11:58)
[2020-01-24] MEDS: PANTOPRAZOLE 40 MG (PROTONIX) TAB PO SCH (06:01)
[2020-01-24 06:11] LABS: BASOPHILS % (AUTO) 0 % (0-10); EOSINOPHILS # (AUTO) 0.1 10^3/uL (0.0-0.3); EOSINOPHILS % (AUTO) 1 % (0-10); HEMATOCRIT 38 % (40-54); HEMOGLOBIN 12.2 g/dL (13.3-17.7); LYMPHOCYTES % (AUTO) 21 % (12-44); MEAN CORPUSCULAR HEMOGLOBIN 30 pg (25-34); MEAN CORPUSCULAR HGB CONC 32 g/dL (32-36); MEAN CORPUSCULAR VOLUME 93 fL (80-99); MEAN PLATELET VOLUME 10.1 fL (9.0-12.2); MONOCYTES # (AUTO) 1.1 10^3/uL (0.0-1.0); MONOCYTES % (AUTO) 12 % (0-12); NEUTROPHILS # (AUTO) 6.3 10^3/uL (1.8-7.8); NEUTROPHILS % (AUTO) 65 % (42-75); PLATELET COUNT 289 10^3/uL (130-400); WHITE BLOOD COUNT 9.6 10^3/uL (4.3-11.0)
[2020-01-24 06:30] LABS: BUN/CREATININE RATIO 16; CALCIUM 9.1 MG/DL (8.5-10.1); CARBON DIOXIDE 24 MMOL/L (21-32); CHLORIDE 102 MMOL/L (98-107); CREATININE SERUM 0.83 MG/DL (0.60-1.30); GFR ESTIMATED > 60; GLUCOSE 136 MG/DL (70-105); PHOSPHORUS 3.8 MG/DL (2.3-4.7); POTASSIUM 4.3 MMOL/L (3.6-5.0); SODIUM 137 MMOL/L (135-145)
--- NOTE | 2020-01-24 07:31 | Diagnostic Imaging Report ---
EXAMINATION: Chest 1 view HISTORY: Shortness of breath, COVID-19 COMPARISON: 01/23/2020 FINDINGS: There has been improvement in the patchy airspace opacities in both lungs. No pleural effusion or pneumothorax. Heart is normal in size for portable technique. IMPRESSION: 1. Improvement in now mild patchy airspace opacities in both lungs. Dictated by: Dictated on workstation # [id number]
[2020-01-24 08:00] VITALS: BP 139/82
[2020-01-24] MEDS: APIXABAN 5 MG (ELIQUIS) TABLET PO SCH (08:18)
[2020-01-24] MEDS: SENNA W/DOCUSATE (SENOKOT S) TABLET PO SCH (08:23)
[2020-01-24] MEDS: polyethylene glycoL POWDER 17 GM (MIRALAX) PACK PO SCH (08:23)
[2020-01-24] MEDS: RT-ALBUTEROL INHALER HFA (VENTOLIN HFA) 18 GM IH SCH (10:28)
[2020-01-24 12:00] VITALS: BP 139/77
--- NOTE | 2020-01-24 14:56 | Physician Query Clarification ---
"Physician Query-General Query to Physician: The medical record reflects the following clinical scenario: History/Risk factors: Covid infection with recent hospitalization, ER physician documentation of Hypercoagulable state associated with COVID-19 Clinical Findings: CT Chest showing Right sided Pulmonary embolism Treatment: Carolinaquis, Supplemental 02 Question: Can you specify if the Pulmonary embolism is due to/associated with Covid 19 infection? 1. Yes - Pulmonary embolism is due to/associated with Covid 19 infection 2. No - Pulmonary embolism is not due to/associated with Covid 19 infection 3. Other, with explanation of the clinical findings 4. Clinically undetermined, no explanation for the clinical findings Please remember a lack of response to the above will prompt a phone page by CDI/coding staff. In responding to this query, please exercise your independent professional judgment. The purpose of this communication is to more accurately reflect the complexity of your patients condition. The fact that a question is asked does not imply that any particular answer is desired or expected. Thank you for timely response to this clarification. Sweetie Wilks, MSN, RN RN Specialist-Clinical Doc Improvement CD -Health Info Mgmt Operations [address] [facility] t: [phone] | f: [phone] If you are unable to reach me at my extension, I may be working from home. Please contact me at [phone] PHYSICIAN RESPONSE: Based on the clinical findings in the record, please respond to the query above on this document as an addendum. Physician Response: Physician Response 1 If you have questions please contact: Laboratory Mechanical Technician: Ext: Thank you for your time and cooperation. Clinical Armature Balancer/Laboratory Mechanical Technician This is a permanent part of the medical record SWEETIE WILKS Jan 24, 2020 14:56 YOSELYN MAYNARD MD Jan 26, 2020 19:16"
[2020-01-24] MEDS ORDERED: APIX5TAB PO (15:02)
[2020-01-28] MEDS ORDERED: APIXABAN 5 MG (ELIQUIS) TABLET PO SCH (09:00)
== END 2020-01-24 16:30 | disposition home or self-care (01) | DRG 176 ==
LOC: EDUNIT# 14:17 → ER 14:18 → ICU 14:37 → 4TH 01-22 10:04
PROVIDERS: ADMIT Internal Medicine; ATTEND Internal Medicine
DX: I26.99 Other pulmonary embolism without acute cor pulmonale (principal); Z68.42 Body mass index [BMI] 45.0-49.9, adult; I10 Essential (primary) hypertension; E11.9 Type 2 diabetes mellitus without complications; E66.9 Obesity, unspecified; R06.00 Dyspnea, unspecified; G47.33 Obstructive sleep apnea (adult) (pediatric); B94.8 Sequelae of other specified infectious and parasitic diseases
CPT/HCPCS: 36415; 71045; 80048; 80053; 82962; 83735; 84100; 85025; 93005; 93306; 94640; 94664; 94760

== ENCOUNTER → 2020-01-21 | Outpatient (CLI) | payer BC ==
[~2020-01-21] MED LIST changes: +APIX5TAB PO; +ATOR10TA66 PO; +CATHETER FLUSH 10 ML SYR IV PRN; +CETI10TA49 PO; +ENAL10TA16 PO; +HOLD METFORMIN - RECEIVED CONTRAST 20 ML VIAL IV SCH; +IOHEXOL 350 MG/ML 100 ML (OMNIPAQUE 350) VIAL IV ONE; +METF-397 PO; +NS 100 ML (IVPB) BAG IV ONE; +OMEP20CA18 PO
--- NOTE | 2020-01-21 14:42 | Diagnostic Imaging Report ---
EXAMINATION: CT angiography of the chest. TECHNIQUE: Contrast enhanced thin section helical images were obtained through the chest with intravenous contrast timed for the optimal opacification of the arterial structures per CTA protocol. Post-processing, reconstructions and interpretation of angiographic images of the vessels was performed. 3D MIP reconstructions were performed and reviewed. All CT scans use one or more of the following dose optimizing techniques: automated exposure control, MA and/or KvP adjustment based on a patient size and exam type, or iterative reconstruction. HISTORY: Shortness of breath and cough COMPARISON: None available. FINDINGS: Pulmonary emboli are present in the segmental branches of the right lower lobe and right middle lobe. There are patchy areas of groundglass throughout both lungs. No CT evidence of right heart strain. Heart size is normal. Aorta is normal in caliber. No pericardial effusion. No lymphadenopathy is seen. There is no pleural effusion or pneumothorax. Limited views. Noted interval changes of cholecystectomy. There are no suspicious osseous lesions. IMPRESSION: 1. Acute pulmonary emboli in the right middle and lower lobes. 2. Scattered groundglass throughout both lungs in a pattern most suggestive of an infection including COVID 19. Critical findings called to CLAYTON Michele by Dr. Lopez on 01/21/2020 at 1437 hours. Dictated by: Dictated on workstation # [id number]
== END ==
LOC: RAD 13:40
PROVIDERS: ATTEND Registered Nurse
DX: U07.1 COVID-19 (principal); I26.09 Other pulmonary embolism with acute cor pulmonale
CPT/HCPCS: 71275

== ENCOUNTER → 2020-02-21 | Outpatient (CLI) | payer BC ==
[~2020-02-21] MED LIST changes: +APIX5TAB PO; +RT-ALBUTEROL SULF 2.5 MG/3 ML PRE-MIX VIAL INH ONE
== END ==
LOC: RT 07:35
PROVIDERS: ATTEND Nurse Practitioner Family
DX: R06.00 Dyspnea, unspecified (principal)
CPT/HCPCS: 94060; 94726; 94729

== ENCOUNTER → 2020-03-10 | Outpatient (CLI) | payer BC ==
[~2020-03-10] MED LIST changes: -RT-ALBUTEROL SULF 2.5 MG/3 ML PRE-MIX VIAL INH ONE
== END ==
LOC: LABNPT 05:49
PROVIDERS: ATTEND Nurse Practitioner Family
DX: Z01.812 Encounter for preprocedural laboratory examination (principal); Z20.828 Contact with and (suspected) exposure to other viral communicable diseases
CPT/HCPCS: 87635

== ENCOUNTER → 2020-03-13 | Outpatient (CLI) | payer BC | LOC: SLEEP 20:36 | PROVIDERS: ATTEND Nurse Practitioner Family | DX: G47.33 Obstructive sleep apnea (adult) (pediatric) (principal); G47.36 Sleep related hypoventilation in conditions classified elsewhere | CPT/HCPCS: 95810 ==

== ENCOUNTER → 2020-05-10 | Outpatient (CLI) | payer BC ==
[~2020-05-10] MED LIST changes: +CATHETER FLUSH 10 ML SYR IV PRN; +HOLD METFORMIN - RECEIVED CONTRAST 20 ML VIAL IV SCH; +IOHEXOL 350 MG/ML 100 ML (OMNIPAQUE 350) VIAL IV ONE; +NS 100 ML (IVPB) BAG IV ONE
[2020-05-10 08:34] LABS: CREATININE SERUM 0.98 MG/DL (0.60-1.30); GFR ESTIMATED > 60
[2020-05-10 08:35] LABS: BUN/CREATININE RATIO 10
--- NOTE | 2020-05-10 09:58 | Diagnostic Imaging Report ---
EXAMINATION: CT Chest with intravenous contrast. TECHNIQUE: Multiple contiguous axial images were obtained through the chest after the uneventful administration of intravenous contrast. All CT scans use one or more of the following dose optimizing techniques: automated exposure control, MA and/or KvP adjustment based on a patient size and exam type, or iterative reconstruction. HISTORY: Shortness of breath, prior COVID, prior pulmonary embolism. COMPARISON: 01/21/2020. FINDINGS: There has been marked improvement of previously seen groundglass with only vague groundglass remaining. No reticulations are seen. No bronchial dilation. No pleural effusion. No pneumothorax. No suspicious nodules. There is no axillary or supraclavicular lymphadenopathy. There is no mediastinal lymphadenopathy. On this non-angiographic CT, the previously seen pulmonary embolism appear to have resolved with no residual emboli seen. Heart size is normal. There are mild coronary artery calcifications. No pericardial effusion. Aorta is normal in caliber. Limited views of the upper abdomen show cholecystectomy. There are no suspicious osseous lesions. IMPRESSION: 1. Markedly improved groundglass with only minimal vague groundglass remaining and no reticulation. Findings consistent with resolving pneumonitis, there will likely be minimal scarring given the degree of improvement at this point. 2. No residual pulmonary emboli seen. Dictated by: Dictated on workstation # [id number]
== END ==
LOC: RAD 09:45
PROVIDERS: ATTEND Nurse Practitioner Family
DX: I26.99 Other pulmonary embolism without acute cor pulmonale (principal); G47.33 Obstructive sleep apnea (adult) (pediatric)
CPT/HCPCS: 36415; 71260; 82565; 84520

== ENCOUNTER → 2020-10-03 | Outpatient (CLI) | payer BC ==
[2020-10-03 09:22] LABS: BUN/CREATININE RATIO 12; GFR ESTIMATED > 60
--- NOTE | 2020-10-03 11:26 | Diagnostic Imaging Report ---
PROCEDURE: CT chest with contrast only. TECHNIQUE: Multiple contiguous axial images were obtained through the chest after administration of intravenous contrast. Auto Exposure Controls were utilized during the CT exam to meet ALARA standards for radiation dose reduction. INDICATION: Left-sided chest pain. The previous CT chest exam of 05/10/2020 noted vague groundglass densities in both lungs. The appearance of the lungs had improved since the prior CTA chest exam of 01/21/2020. On this exam the lungs seem generally clear and well aerated. There is little if any residual density still present in each lung. There is no sign of failure, pneumonia or pleural effusion to indicate an acute abnormality. There is no parenchymal lung mass visualized. This study is less than optimal however as the pulmonary arteries and the aorta were not well opacified. The aorta is not abnormally dilated and there is no definite evidence for a dissection. There is no clear defect within the pulmonary arteries to indicate a pulmonary embolus either. The heart size is within normal limits and stable when compared to the prior exam. Coronary artery calcifications are again noted. There is no mediastinal or hilar adenopathy. The thyroid gland was partially obscured by streak artifact. The sections through the upper abdomen failed to show any evidence for an acute abnormality. As noted on the prior exam, the gallbladder is surgically absent. The bone windows show no sign of a fracture or of a destructive lesion. IMPRESSION: 1. The appearance of the chest has improved since the prior exam as the faint groundglass densities in both lungs seen previously have resolved. There is no acute abnormality identified. 2. The aorta and the pulmonary arteries were not well opacified and consequently the evaluation of these vessels is less than optimal. There is no evidence for a dissection or for a defect to suggest a pulmonary embolus. 3. There is coronary artery disease. Dictated by: Dictated on workstation # [id number]
== END ==
LOC: RAD 10:15
PROVIDERS: ATTEND Nurse Practitioner Family
DX: I25.10 Atherosclerotic heart disease of native coronary artery without angina pectoris (principal)
CPT/HCPCS: 36415; 71260; 82565; 84520